=== PATIENT | female | born 1940 | race African-American/Black ===

== ENCOUNTER 2018-03-22 15:00 | Observation (INO) | payer MEDICARE, OTHER ==
[2018-03-22] MEDS ORDERED: ASPIRIN 81 MG TABLET, CHEWABLE PO ONE (15:11)
--- NOTE | 2018-03-22 15:25 | ER Document Report ---
ED Cardiac - General Chief Complaint: Chest Pain > 30 Stated Complaint: CHEST PAIN Time Seen by Provider: 03/22/18 15:12 Notes: The patient is a 78-year-old female, past medical history CABG a few years ago at [place], presents with 2 hours of substernal chest pain described as a pressure. She took 325 mg aspirin prior to arrival. Her arabic professor is Dr. Vignesh Mendez, who is on vacation at this time. Patient says this feels different than her indigestion or reflux. She is also having a dry cough. Denies fevers, hemoptysis, leg swelling, back pain, numbness, tingling, rash or headache. TRAVEL OUTSIDE OF THE [place] IN LAST 30 DAYS: No - Related Data Allergies/Adverse Reactions: lisinopril [Lisinopril] Allergy (Verified 06/24/15 13:27) Penicillins Allergy (Verified 06/24/15 13:27) Past Medical History - General Information source: Patient - Social History Smoking Status: Unknown if Ever Smoked Family History: Reviewed & Not Pertinent - Past Medical History Cardiac Medical History: Reports: Hx Coronary Artery Disease, Hx Hypercholesterolemia, Hx Hypertension Endocrine Medical History: Reports: Hx Diabetes Mellitus Type 1, Hx Diabetes Mellitus Type 2 Past Surgical History: Reports: Hx Cardiac Surgery, Hx Hysterectomy, Hx Orthopedic Surgery - left hip replacement - Immunizations Hx Diphtheria, Pertussis, Tetanus Vaccination: Yes Review of Systems - Review of Systems Notes: REVIEW OF SYSTEMS: CONSTITUTIONAL: -fevers, -chills EENT: -eye pain, -difficulty swallowing, -nasal congestion CARDIOVASCULAR: +chest pain, -syncope. RESPIRATORY: -cough, -SOB GASTROINTESTINAL: -abdominal pain, -nausea, -vomiting, -diarrhea GENITOURINARY: -dysuria, -hematuria MUSCULOSKELETAL: -back pain, -neck pain SKIN: -rash or skin lesions. HEMATOLOGIC: -easy bruising or bleeding. LYMPHATIC: -swollen, enlarged glands. NEUROLOGICAL: -altered mental status or loss of consciousness, -headache, - neurologic symptoms PSYCHIATRIC: -anxiety, -depression. ALL OTHER SYSTEMS REVIEWED AND NEGATIVE. Physical Exam - Vital signs Vitals: Pulse Ox 98 03/22/18 15:12 - Notes Notes: PHYSICAL EXAMINATION: GENERAL: Well-appearing, well-nourished and in no acute distress. HEAD: Atraumatic, normocephalic. EYES: Pupils equal round and reactive to light, extraocular movements intact, sclera anicteric, conjunctiva are normal. ENT: nares patent, oropharynx clear without exudates. Moist mucous membranes. NECK: Normal range of motion, supple without lymphadenopathy LUNGS: Breath sounds clear to auscultation bilaterally and equal. No wheezes rales or rhonchi. HEART: Regular rate and rhythm with murmur ABDOMEN: Soft, nontender, normoactive bowel sounds. No guarding, no rebound. No masses appreciated. EXTREMITIES: Normal range of motion, no pitting or edema. No cyanosis. NEUROLOGICAL: Cranial nerves grossly intact. Normal speech, normal gait. Normal sensory and motor exams. PSYCH: Normal mood, normal affect. SKIN: Warm, Dry, normal turgor, no rashes or lesions noted. Course - Re-evaluation Re-evalutation: Patient arrives with 2 hours of substernal chest pain that is described as a pressure. Pt refused nitro because her chest pain had resolved. EKG has a new LBBB compared to her EKG in 2014, but no modified Scarbossa criteria at this time, and the patient thinks that she has had left bundle branch block in the past. Her HEART score is 6. She requires admission for further evaluation and treatment of her chest pain. 03/22/18 17:[address] Blackmon and he will admit patient to Tele Obs for further evaluation and treatment. - Vital Signs Vital signs: Temp Pulse Resp BP Pulse Ox 98 03/22/18 15:12 - Laboratory Result Diagrams: 03/22/18 15:18 03/22/18 15:18 Laboratory results interpreted by me: 03/22/18 03/22/18 15:18 15:18 Hgb 10.7 L Hct 32.5 L RDW 15.9 H Sodium 145.9 H Chloride 112 H BUN 28 H Est GFR (Non-Af Amer) 55 L - Diagnostic Test Radiology reviewed: Image reviewed, Reports reviewed Radiology results interpreted by me: CXR: NAD - EKG Interpretation by Me EKG shows normal: Sinus rhythm, Stout, ST-T Waves Rate: Bradycardia Stout/QRS: LBBB When compared to previous EKG there are: Changes noted Additional EKG results interpreted by me: New LBBB since 04/07/2015. No Scarbossa criteria. Discharge - Discharge Clinical Impression: Chest pain Qualifiers: Chest pain type: unspecified Qualified Code(s): R07.9 - Chest pain, unspecified Condition: Stable Disposition: ADMITTED OBSERVATION Admitting Provider: Hospitalist - Dut Unit Admitted: Telemetry Referrals: ESTELLE HARDING MD [NO LOCAL MD] - Follow up as needed
[2018-03-22 15:37] LABS: ABSOLUTE EOSINOPHILS # (AUTO) 0.1 10^3/uL (0.0-0.6); ABSOLUTE LYMPHOCYTES (AUTO) 1.5 10^3/uL (0.5-4.7); ABSOLUTE MONOCYTES (AUTO) 0.5 10^3/uL (0.1-1.4); ABSOLUTE NEUT (AUTO) 4.1 10^3/uL (1.7-8.2); BASOPHILS % (AUTO) 0.6 % (0-2); EOSINOPHILS % (AUTO) 2.2 % (0-6); HEMATOCRIT 32.5 % (36.0-47.0); HEMOGLOBIN 10.7 g/dL (12.0-15.5); LYMPHOCYTES % (AUTO) 24.1 % (13-45); MEAN CORPUSCULAR HEMOGLOBIN 27.8 pg (27.0-33.4); MEAN CORPUSCULAR VOLUME 84 fl (80-97); MONOCYTES % (AUTO) 8.1 % (3-13); PLATELET COUNT 187 10^3/uL (150-450); RED BLOOD COUNT 3.86 10^6/uL (3.72-5.28); RED CELL DISTRIBUTION WIDTH 15.9 % (11.5-14.0); TOTAL CELLS COUNTED % (AUTO) 100 %; WHITE BLOOD COUNT 6.2 10^3/uL (4.0-10.5)
--- NOTE | 2018-03-22 15:38 | RADIOLOGY REPORT (SQ) ---
EXAM DESCRIPTION: CHEST SINGLE VIEW COMPLETED DATE/TIME: 03/22/2018 3:25 pm REASON FOR STUDY: CP COMPARISON: 06/22/2015. EXAM PARAMETERS: NUMBER OF VIEWS: One view. TECHNIQUE: Single frontal radiographic view of the chest acquired. RADIATION DOSE: NA LIMITATIONS: None. FINDINGS: LUNGS AND PLEURA: No opacities, masses or pneumothorax. No pleural effusion. MEDIASTINUM AND HILAR STRUCTURES: No masses. Contour normal. HEART AND VASCULAR STRUCTURES: Heart normal in size. Normal vasculature. BONES: No acute findings. HARDWARE: Sternotomy wires. OTHER: No other significant finding. IMPRESSION: NO ACUTE RADIOGRAPHIC FINDING IN THE CHEST. TECHNICAL DOCUMENTATION: JOB ID: [id number] [employer]- All Rights Reserved Reading location - IP/workstation name: [email or web address]
[2018-03-22] MEDS ORDERED: NITROGLYCERIN 0.4 MG/TAB 25 TAB/BOTTLE SL PRN ×2 (15:41→17:44)
[2018-03-22 15:52] LABS: INTERNATIONAL RATION (INR) 0.99; PARTIAL THROMBOPLASTIN TIME 26.2 SEC (23.5-35.8); PROTHROMBIN TIME 13.6 SEC (11.4-15.4)
[2018-03-22 16:02] LABS: ALANINE AMINOTRANSFERASE 20 U/L (9-52); ALBUMIN 3.7 g/dL (3.5-5.0); ALKALINE PHOSPHATASE 85 U/L (38-126); ANION GAP 11 (5-19); ASPARTATE AMINO TRANSFERASE 19 U/L (14-36); BILIRUBIN,DIRECT 0.3 mg/dL (0.0-0.4); BILIRUBIN,TOTAL 0.5 mg/dL (0.2-1.3); BLOOD UREA NITROGEN 28 mg/dL (7-20); CALCIUM 9.1 mg/dL (8.4-10.2); CARBON DIOXIDE 23 mmol/L (22-30); CHLORIDE 112 mmol/L (98-107); CREATINE KINASE 133 U/L (30-135); GLUCOSE 110 mg/dL (75-110); SODIUM 145.9 mmol/L (137-145); TOTAL PROTEIN 7.8 g/dL (6.3-8.2)
[2018-03-22 16:14] LABS: CREATINE KINASE MB 1.55 ng/mL (<4.55)
[2018-03-22 16:18] LABS: TROPONIN I < 0.012 ng/mL
[2018-03-22] MEDS ORDERED: DEXTROSE 40% GEL 15 GM TUBE PO PRN ×2 (18:14)
[2018-03-22] MEDS ORDERED: INSULIN LISPRO 100 UNIT/ML 3 ML VIAL SUBCUT PRN (18:14)
[2018-03-22] MEDS ORDERED: GLUCAGON,HUMAN RECOMB 1 MG INJ IM PRN (18:14)
[2018-03-22] MEDS ORDERED: DEXTROSE 50%-WATER 25 GM/50 ML DISP.SYRIN IV PRN ×2 (18:14)
--- NOTE | 2018-03-22 18:23 | PDOC H&P ---
History of Present Illness Admission Date/PCP: 03/22/18 17:42 Patient complains of: chest pain History of Present Illness: TRUPTI GARRISON is a 78 year old female with past medical history of hypertension , hyperlipidemia, and coronary artery bypass graft x4, who presented to the ED complaining of chest pain this morning. Patient states that this morning she was doing a lot of work around the house when she developed chest pain. Patient states that she was walking around when she felt a little chest pain in the center of her chest. States that the pain lasted about a minute or so and it resolved. She states she continued to do work around the house and developed the chest pain again. At that time she sat down and her pain dissipated. States after that she went to the mall and the bank and walked around and did not have any pain. Later in the afternoon she started to have the pain again and hence she came to the ED for evaluation. Patient states the pain is non radiating, sharp in nature and describes it more of a discomfort in the chest pain. States that at rest her pain gets better but with exertion it is worse. She also had associated shortness of breath when she had chest pain. Patient does state that she had a history of coronary artery bypass X4 about 5 years ago. She denies any left arm pain, jaw pain or abdominal pain. Past Medical History Cardiac Medical History: Reports: Coronary Artery Disease, Hyperlipidema, Hypertension Endocrine Medical History: Reports: Diabetes Mellitus Type 1, Diabetes Mellitus Type 2 Past Surgical History Past Surgical History: Reports: Hysterectomy, Orthopedic Surgery - left hip replacement Social History Smoking Status: Unknown if Ever Smoked Family History Family History: Reviewed & Not Pertinent Parental Family History Reviewed: Yes Children Family History Reviewed: Yes Sibling(s) Family History Reviewed.: Yes Medication/Allergy Home Medications: Oxycodone HCl/Acetaminophen [Percocet 5-325 mg Tablet] 1 - 2 tab PO Q4H PRN #20 tablet 06/22/15 Besifloxacin HCl [Besivance Drops] 1 drop OS BID #1 bottle 06/24/15 Erythromycin Base [Erythromycin Oph 1 gm Oint Ud] 1 applic OS QHS #0 tube Allergies/Adverse Reactions: lisinopril [Lisinopril] Allergy (Verified 06/24/15 13:27) Penicillins Allergy (Verified 06/24/15 13:27) Physical Exam Vital Signs: Temp Pulse Resp BP Pulse Ox 98 03/22/18 15:12 General appearance: PRESENT: no acute distress, obese, well-developed, well- nourished Head exam: PRESENT: atraumatic, normocephalic Eye exam: PRESENT: EOMI. ABSENT: conjunctival injection, scleral icterus Mouth exam: PRESENT: moist Neck exam: ABSENT: JVD, tracheal deviation Respiratory exam: PRESENT: clear to auscultation preeti, symmetrical. ABSENT: chest wall tenderness Cardiovascular exam: PRESENT: RRR, +S1, +S2, systolic murmur Pulses: PRESENT: +2 pedal pulses bilateral GI/Abdominal exam: PRESENT: normal bowel sounds, soft. ABSENT: tenderness Extremities exam: PRESENT: full ROM. ABSENT: calf tenderness, joint swelling, tenderness Neurological exam: PRESENT: alert, awake, CN II-XII grossly intact Psychiatric exam: PRESENT: normal mood Skin exam: PRESENT: dry, warm Results Laboratory Results: Laboratory 03/22/18 03/22/18 03/22/18 15:18 15:18 15:18 WBC 6.2 RBC 3.86 Hgb 10.7 L Hct 32.5 L MCV 84 MCH 27.8 MCHC 33.0 RDW 15.9 H Plt Count 187 Seg Neutrophils % 65.0 Lymphocytes % 24.1 Monocytes % 8.1 Eosinophils % 2.2 Basophils % 0.6 Absolute Neutrophils 4.1 Absolute Lymphocytes 1.5 Absolute Monocytes 0.5 Absolute Eosinophils 0.1 Absolute Basophils 0.0 PT INR APTT Sodium 145.9 H Potassium 4.0 Chloride 112 H Carbon Dioxide 23 Anion Gap 11 BUN 28 H Creatinine 0.99 Est GFR ( Amer) > 60 Est GFR (Non-Af Amer) 55 L Glucose 110 Calcium 9.1 Total Bilirubin 0.5 Direct Bilirubin 0.3 Neonat Total Bilirubin Not Reportable Neonat Direct Bilirubin Not Reportable Neonat Indirect Bili Not Reportable AST 19 ALT 20 Alkaline Phosphatase 85 Creatine Kinase 133 CK-MB (CK-2) 1.55 Troponin I < 0.012 Total Protein 7.8 Albumin 3.7 03/22/18 15:18 WBC RBC Hgb Hct MCV MCH MCHC RDW Plt Count Seg Neutrophils % Lymphocytes % Monocytes % Eosinophils % Basophils % Absolute Neutrophils Absolute Lymphocytes Absolute Monocytes Absolute Eosinophils Absolute Basophils PT 13.6 INR 0.99 APTT 26.2 Sodium Potassium Chloride Carbon Dioxide Anion Gap BUN Creatinine Est GFR ( Amer) Est GFR (Non-Af Amer) Glucose Calcium Total Bilirubin Direct Bilirubin Neonat Total Bilirubin Neonat Direct Bilirubin Neonat Indirect Bili AST ALT Alkaline Phosphatase Creatine Kinase CK-MB (CK-2) Troponin I Total Protein Albumin EKG Comments: reviewed Impressions: Chest X-Ray 03/22/18 15:12 IMPRESSION: NO ACUTE RADIOGRAPHIC FINDING IN THE CHEST. Status: Image reviewed by me Assessment & Plan - Diagnosis (1) Chest pain Qualifiers: Chest pain type: chest pain on breathing Qualified Code(s): R07.1 - Chest pain on breathing; R07.81 - Pleurodynia Is this a current diagnosis for this admission?: Yes Plan: R/O ACS- likely anginal in nature- will get serial troponins- Trop x1 is neg, Nitro PRN. O2 PRN. Given her symptoms- I think she will benefit from a Stress test- spoke with snagger and will get one tomorrow. (2) CAD (coronary artery disease) of artery bypass graft Qualifiers: [place] vs. transplanted heart: [place] heart Associated angina: with stable angina Qualified Code(s): I25.708 - Atherosclerosis of coronary artery bypass graft(s), unspecified, with other forms of angina pectoris Is this a current diagnosis for this admission?: Yes Plan: history of CABG X4. see plan above. C/w her home meds of beta tatiana (3) Hyperlipidemia Qualifiers: Hyperlipidemia type: unspecified Qualified Code(s): E78.5 - Hyperlipidemia , unspecified Is this a current diagnosis for this admission?: Yes Plan: stable c/w her statin (4) Obesity (BMI 30-39.9) Is this a current diagnosis for this admission?: Yes Plan: counseled on weight loss and dietary/lifestyle modifications (5) Diabetes mellitus type 2 in obese Is this a current diagnosis for this admission?: Yes Plan: will c/w with her Lantus but cut in half due to NPO over night and start with SSI
[2018-03-23 04:49] LABS: ABSOLUTE BASOPHILS # (AUTO) 0.1 10^3/uL (0.0-0.2); ABSOLUTE EOSINOPHILS # (AUTO) 0.1 10^3/uL (0.0-0.6); ABSOLUTE LYMPHOCYTES (AUTO) 1.7 10^3/uL (0.5-4.7); ABSOLUTE MONOCYTES (AUTO) 0.6 10^3/uL (0.1-1.4); ABSOLUTE NEUT (AUTO) 3.7 10^3/uL (1.7-8.2); BASOPHILS % (AUTO) 0.9 % (0-2); EOSINOPHILS % (AUTO) 2.1 % (0-6); HEMATOCRIT 31.3 % (36.0-47.0); HEMOGLOBIN 10.4 g/dL (12.0-15.5); LYMPHOCYTES % (AUTO) 27.2 % (13-45); MEAN CORPUSCULAR HEMOGLOBIN 27.7 pg (27.0-33.4); MEAN CORPUSCULAR HGB CONC 33.3 g/dL (32.0-36.0); MEAN CORPUSCULAR VOLUME 83 fl (80-97); MONOCYTES % (AUTO) 9.9 % (3-13); PLATELET COUNT 160 10^3/uL (150-450); RED BLOOD COUNT 3.75 10^6/uL (3.72-5.28); RED CELL DISTRIBUTION WIDTH 15.5 % (11.5-14.0); SEGMENTED NEUTROPHILS % (AUTO) 59.9 % (42-78); TOTAL CELLS COUNTED % (AUTO) 100 %; WHITE BLOOD COUNT 6.2 10^3/uL (4.0-10.5)
[2018-03-23 04:55] LABS: INTERNATIONAL RATION (INR) 1.02; PROTHROMBIN TIME 13.9 SEC (11.4-15.4)
[2018-03-23 05:12] LABS: ANION GAP 9 (5-19); BLOOD UREA NITROGEN 25 mg/dL (7-20); CALCIUM 9.1 mg/dL (8.4-10.2); CARBON DIOXIDE 26 mmol/L (22-30); CHLORIDE 109 mmol/L (98-107); CHOLESTEROL 204.87 mg/dL (0-200); GLUCOSE 112 mg/dL (75-110); POTASSIUM 4.1 mmol/L (3.6-5.0); TRIGLYCERIDES 62 mg/dL (<150)
[2018-03-23 05:23] LABS: DIRECT LDL 122 mg/dL (<100)
[2018-03-23] MEDS ORDERED: MORPHINE SULFATE 10 MG/ML INJ IV PRN (08:45)
[2018-03-23] MEDS ORDERED: METOPROLOL SUCCINATE 25 MG TAB.SR.24H PO SCH (10:00)
--- NOTE | 2018-03-23 10:06 | EKG REPORT ---
SEVERITY:- ABNORMAL ECG - SINUS RHYTHM LEFT ATRIAL ABNORMALITY LEFT BUNDLE BRANCH BLOCK : Confirmed by: Fabian Peralta 23-Mar-2018 10:05:55
--- NOTE | 2018-03-23 10:07 | EKG REPORT ---
SEVERITY:- ABNORMAL ECG - SINUS RHYTHM PROBABLE LEFT ATRIAL ABNORMALITY LEFT BUNDLE BRANCH BLOCK : Confirmed by: Fabian Peralta 23-Mar-2018 10:06:06
--- NOTE | 2018-03-23 11:58 | DRAGON STRESS TEST REPORT ---
Intravenous Lexiscan Cardiolite stress test using single photon emmision computerized tomography. Date of procedure: 03/23/2018. Ordering Provider: Dr. Becka Blackmon. Patient's status: In Patient. Indication: Chest pain. Patient has history of coronary artery disease and history of coronary artery bypass graft surgery. Coronary risk factors: Age, hypertension, diabetes mellitus, and dyslipidemia. Resting EKG: Sinus Rhythm. Left bundle branch block pattern [LBBB] Stress EKG:[ Nondiagnostic of ischemia, due to the patient's left bundle branch block pattern. The patient no chest pain or discomfort, and there were no arrhythmias seen. Reason for termination: Protocol. Conclusions: Normal EKG and hemodynamic response to IV Lexiscan. Nuclear data: At rest the patient was given 13.97 millicuries of technetium 99m sestamibi injected intravenously. As per protocol rest non gated SPECT images were obtained. Subsequently the patient was given intravenous Lexiscan at a dose of 0.4 mg in 5 mL intravenously, followed by flush with normal saline. Subsequently the stress dose of 40.8 millicuries of technetium 99m sestamibi was injected intravenously. As per protocol stress gated images were obtained. Nuclear interpretation: Review of images showed that all segments of the myocardium had normal perfusion at rest, and normal perfusion post stress with IV Lexiscan. All segments of the myocardium had normal motion, contraction, and thickening by gated study. T. I D. ratio was normal at 1.15. Computer read rest, and stress left ventricular ejection fraction were 63 %, and 55 %, respectively. Visually both the stress and rest ejection fractions were normal, and greater than 60 %. Conclusion: 1. There is no scintigraphic evidence of Lexiscan induced myocardial ischemia. 2. There is no scintigraphic evidence of myocardial infarction/scar. Recommendations: Aggressive risk factor modification, and treating the underlying co- morbidities. MTDD
[2018-03-23] MEDS ORDERED: REGADENOSON INJ 0.4 MG/5 ML DISP.SYRIN IV ONE (12:04)
[2018-03-23] MEDS ORDERED: DOCUSATE SODIUM 100 MG CAPSULE PO PRN (13:43)
[2018-03-23 13:53] VITALS: BP 158/73
[2018-03-23] MEDS ORDERED: HEPARIN SOD (PORCINE) 5,000 UNIT/ML 1 ML SYRINGE SUBCUT SCH (14:00)
--- NOTE | 2018-03-23 14:39 | PDOC DISCHARGE SUMMARY ---
General - Admit/Disc Date/PCP Admission Date/Primary Care Provider: 03/22/18 17:42 Discharge Date: 03/23/18 - Discharge Diagnosis (1) Chest pain Is this a current diagnosis for this admission?: Yes (2) CAD (coronary artery disease) of artery bypass graft Is this a current diagnosis for this admission?: Yes (3) Hyperlipidemia Is this a current diagnosis for this admission?: Yes (4) Obesity (BMI 30-39.9) Is this a current diagnosis for this admission?: Yes (5) Diabetes mellitus type 2 in obese Is this a current diagnosis for this admission?: Yes - Additional Information Discharge Diet: Cardiac Discharge Activity: Activity As Tolerated Home Medications: Ascorbic Acid [Vitamin C 500 mg Tablet] 500 mg PO DAILY 03/23/18 Aspirin [Ecotrin 81 mg EC Tablet] 81 mg PO DAILY 03/23/18 Atorvastatin Calcium [Lipitor 80 mg Tablet] 80 mg PO QHS 03/23/18 Docusate Sodium [Colace 100 mg Capsule] 100 mg PO DAILYP PRN 03/23/18 Insulin Glargine,Hum.rec.anlog [Lantus] 20 units SQ QHS 03/23/18 Metoprolol Succinate [Toprol Xl 25 mg Tab.sr] 25 mg PO DAILY 03/23/18 Micardis Hct 80-12.5mg 1 tab PO DAILY 03/23/18 Nisoldipine [Sular] 17 mg PO QHS 03/23/18 History of Present Illness Patient complains of: chest pain History of Present Illness: please see HPI Hospital Course Hospital Course: After admission to the hospital she remained chest pain-free. Patient had no other symptoms. Patient underwent Lexiscan stress test the next morning and was negative. She was discharged home to the care of her PCP and told to follow -up with her outside deliverer. Patient was told that if he has any has chest pain that she should call 911. Otherwise she should follow with her PCP in 1 week and her outside deliverer within 1-2 weeks. Physical Exam Vital Signs: Temp Pulse Resp BP Pulse Ox 97.4 F 69 16 170/58 H 100 03/23/18 11:37 03/23/18 11:37 03/23/18 11:37 03/23/18 11:37 03/23/18 11:37 Intake & Output 03/22/18 03/23/1818 06:59 06:59 06:59 Weight 193 lb 9.054 oz General appearance: PRESENT: no acute distress, obese Head exam: PRESENT: atraumatic, normocephalic Eye exam: PRESENT: EOMI. ABSENT: scleral icterus Mouth exam: PRESENT: moist Neck exam: ABSENT: tracheal deviation Respiratory exam: PRESENT: clear to auscultation preeti, symmetrical Cardiovascular exam: PRESENT: RRR, +S1, +S2 Pulses: PRESENT: +2 pedal pulses bilateral GI/Abdominal exam: PRESENT: normal bowel sounds, soft. ABSENT: tenderness Extremities exam: ABSENT: joint swelling, tenderness, +2 edema Musculoskeletal exam: PRESENT: full ROM Neurological exam: PRESENT: alert, awake, CN II-XII grossly intact Skin exam: PRESENT: dry, warm Results Laboratory Results: 03/23/18 04:06 03/23/18 04:06 03/23/18 03/23/18 04:06 04:06 WBC 6.2 RBC 3.75 Hgb 10.4 L Hct 31.3 L MCV 83 MCH 27.7 MCHC 33.3 RDW 15.5 H Plt Count 160 Seg Neutrophils % 59.9 Lymphocytes % 27.2 Monocytes % 9.9 Eosinophils % 2.1 Basophils % 0.9 Absolute Neutrophils 3.7 Absolute Lymphocytes 1.7 Absolute Monocytes 0.6 Absolute Eosinophils 0.1 Absolute Basophils 0.1 Sodium 144.0 Potassium 4.1 Chloride 109 H Carbon Dioxide 26 Anion Gap 9 BUN 25 H Creatinine 1.00 Est GFR ( Amer) > 60 Est GFR (Non-Af Amer) 54 L Glucose 112 H Calcium 9.1 Triglycerides 62 Cholesterol 204.87 H LDL Cholesterol Direct 122 H VLDL Cholesterol 12.0 HDL Cholesterol 51 03/22/18 03/23/18 19:25 01:31 Troponin I < 0.012 < 0.012 Impressions: Chest X-Ray 03/22/18 15:12 IMPRESSION: NO ACUTE RADIOGRAPHIC FINDING IN THE CHEST. Qualifiers - * PATIENT BEING DISCHARGED WITH ANY OF THE FOLLOWING DIAGNOSIS: No VTE patient discharged on overlapping Therapy?: No Reason(s) for not prescribing Overlap Therapy:: Procedure Contraindicated Plan Discharge Plan: Stress test normal. Follow up with PCP within 1 week. Follow up with [employer] Remote Sensing Scientist within 1-2 weeks. Time Spent: Less than 30 Minutes
[2018-03-23] MEDS ORDERED: INSULIN GLARGINE,HUM.REC.ANLOG 1,000 UNIT/10 ML UNIT SUBCUT SCH (22:00)
[2018-03-23] MEDS ORDERED: INSULIN GLARGINE,HUM.REC.ANLOG 300 UNIT/3 ML INSULN.PEN SUBCUT SCH (22:00)
[2018-03-23] MEDS ORDERED: ATORVASTATIN CALCIUM 80 MG TABLET PO SCH (22:00)
[2018-03-24] MEDS ORDERED: ASPIRIN 81 MG TABLET, ENT COATED PO SCH (10:00)
== END 2018-03-23 14:41 | disposition home or self-care (01) ==
LOC: ER 15:00 → EH 17:42 → 5 20:20
PROVIDERS: ADMIT Internal Medicine; ATTEND Internal Medicine
DX: R07.1 Chest pain on breathing (principal); R07.81 Pleurodynia; I25.708 Atherosclerosis of coronary artery bypass graft(s), unspecified, with other forms of angina pectoris; E78.5 Hyperlipidemia, unspecified; E66.9 Obesity, unspecified; E11.9 Type 2 diabetes mellitus without complications; R06.02 Shortness of breath; R05 Cough; I44.7 Left bundle-branch block, unspecified; R00.1 Bradycardia, unspecified; I10 Essential (primary) hypertension; Z68.33 Body mass index [BMI] 33.0-33.9, adult; Z79.82 Long term (current) use of aspirin; Z79.899 Other long term (current) drug therapy; Z95.1 Presence of aortocoronary bypass graft
CPT/HCPCS: 93005 ×2; 99285; 36415 ×2; 82553; 82962 ×2; 82550; 85025 ×2; 85610 ×2; 85730; 80048; 80053; 84484 ×2; 80061; 93017; 71045; 78452; 93010 ×2; G0378 ×3; A9500; J2785; J3490 ×2; A9270; Q9969; J1815

== ENCOUNTER 2018-06-09 13:44 | Inpatient (IN) | payer MEDICARE, OTHER ==
--- NOTE | 2018-06-09 14:33 | ER Document Report ---
ED NIH Stroke Scale - NIH Stroke Scale *: 1. NIH scale should be completed with appropriate accompanying assessment tools. *: 2. The NIH should reflect what the patient is capable of doing and should not be coached by the clinician. 1a. Level of Consciousness: 0=Alert;keenly responsive -: 1=Drowsy -: 2=Obtunded -: 3=Coma/unresponsive or reflex to noxious stimuli. 1a. Responses: 1 1b. Orientation Questions: a. What month is it? -: b. How old are you? -: 0=Answers both questions correctly. -: 1=Answers one question correctly or patient is intubated or has orotracheal trauma. -: 2=Answers neither question correctly. 1b. Responses: 0 1c. Response to commands: a. Open and close eyes? -: b. Hanger and release hand? -: Credit is given despite weakness. Demonstration of task is permitted. Substitute command if hands cannot be used. -: 0=Performs both tasks correctly -: 1=Performs one task correctly -: 2=Performs neither task correctly 1c. Responses: 0 2. Gaze: Establish eye contact and instruct patient to "Follow my finger" -: 0=Normal -: 1=Partial gaze palsy. Gaze is abnormal in one or both eyes, but where forced deviation or total gaze paresis is not present. -: 2=Forced deviation or total gaze paresis. 2. Responses: 0 3. Visual Diaz: Sees fingers in all four quadrants. -: 0=No visual loss. -: 1=Partial hemianopsia. -: 2=Complete hemianopsia. -: 3=Bilateral hemianopsia (including Cortical blindness) 3. Responses: 0 4. Facial Movement: Instruct patient to: -: a. Show me your teeth -: b. Raise your eyebrows -: c. Close your eyes -: d. Smile -: 0=Normal symmetrical movement -: 1=Minor paralysis (flattened nasolabial fold, asymmetry on smiling). -: 2=Partial paralysis (total or near total paralysis of lower face). -: 3=Complete paralysis of upper and lower face 4. Responses: 1 5. Motor functions (left arm): Alternate sides and extend each arm with palms down (90 degrees if sitting or 45 degrees for supine). -: 0=No drift;limb holds for full 10 seconds. -: 1=Drift; limb holds but drifts down before full 10 seconds, but does not hit bed. -: 2=Some effort against gravity; limb cannot get to or maintain position. -: 3=No effort against gravity; limb falls. -: 4=No movement. -: UN=Amputation, joint fusion, explain in comments. 5. Responses (left arm): 0 5. Motor Functions (right arm): Alternate sides and extend each arm with palms down (90 degrees if sitting or 45 degrees for supine). -: 0=No drift;limb holds for full 10 seconds. -: 1=Drift; limb holds but drifts down before full 10 seconds, but does not hit bed. -: 2=Some effort against gravity; limb cannot get to or maintain position. -: 3=No effort against gravity; limb falls. -: 4=No movement. -: UN=Amputation, joint fusion, explain in comments. 5. Responses (right arm): 2 6. Motor Functions (left leg): With patient lying supine, alternate sides and extend each leg (30 degrees always while supine). -: 0=No drift, leg holds position for full 5 seconds -: 1=Drift; leg falls before full 5 seconds but does not hit bed. -: 2=Some effort against gravity, leg falls to bed but some effort against gravity. -: 3=No effort against gravity, leg falls to bed immediately. -: 4=No movement. -: UN=Amputation, joint fusion; explain in comments. 6. Responses (left leg): 0 6. Motor Functions (right leg): With patient lying supine, alternate sides and extend each leg (30 degrees always while supine). -: 0=No drift, leg holds position for full 5 seconds -: 1=Drift; leg falls before full 5 seconds but does not hit bed. -: 2=Some effort against gravity, leg falls to bed but some effort against gravity. -: 3=No effort against gravity, leg falls to bed immediately. -: 4=No movement. -: UN=Amputation, joint fusion; explain in comments. 6. Responses (right leg): 1 7. Limb Ataxia: With eyes open instruct patient to: -: a. "Touch your finger to your nose". -: b. "Touch your heel to your billy" -: 0=Absent -: 1=Present in one limb. -: 2=Present in two limbs. -: UN=Amputation or joint fusion; explain in comments. 7. Responses: 1 7. If ataxia present choose as appropriate: Right arm 8. Sensory: Test sensation using pinprick or noxious stimuli. Test as many body parts as possible. -: 0=Normal;no sensory loss -: 1=Mile to moderate sensory loss (patient feels pin prick but is less sharp on affected side). -: 2=Severe or total sensory loss. 8. Responses: 0 9. Best Language: Instruct patient to: -: a. "Describe what you see in this picture." -: b. "Name the items in this picture." -: c. "Read these sentences." -: 0=No aphasia, normal -: 1=Mild to moderate aphasia. -: 2=Severe aphasia -: 3=Mute, global aphasia, no usable speech or auditory comprehension. 9. Responses: 1 10. Articulation, Dysarthia: Instruct patient to: -: "Read these words" or "Repeat these words" -: 0=Normal -: 1=Mild to moderate; patient may slur some words but can be understood without difficulty. -: 2=Severe; patients speech so slurred as to be unintelligible in the absence of dysphasia. -: UN=Intubated or other physical barrier, explain in comments. 10. Responses: 1 11. Extinction or inattention: 0=No abnormality -: 1= Visual, tactile, auditory, spatial, or personal inattention or extinction to bilateral simulation in one or the sensory modalities. -: 2=Profound yamilex-inattention or yamilex-inattention to more than one modality; does not recognize own hand. 11. Responses: 0 Total Score: 8
--- NOTE | 2018-06-09 14:36 | ER Document Report ---
ED Medical Screen (RME) - General Chief Complaint: S/S of Possible Stroke Stated Complaint: SLURRED SPEECH Time Seen by Provider: 06/09/18 14:17 Mode of Arrival: Ambulatory Information source: Patient, Relative TRAVEL OUTSIDE OF THE [place] IN LAST 30 DAYS: No - HPI Notes: 06/09/18 14:33 Patient is a 78-year-old black female history of insulin-dependent diabetes and previous coronary bypass graft presents to the emergency department with report of abrupt onset at 2300 last night of aphasia and right-sided weakness. The patient has had difficulty ambulating. She denies any headache or chest pain. There has been no nausea or vomiting. No medication changes. She currently is taking aspirin and insulin but is not on any other anticoagulants. No previous stroke history. On exam she has aphasia and NIH stroke scale of 8 with right- sided weakness. No sensory deficit. The patient is alert and oriented. Plan for CT stroke protocol and CTA if indicated given that the patient is within a 24 hour window to search for large vessel occlusive disease. Lab work chest x- ray EKG other studies were ordered on the patient. Please see partner note for further evaluation. - Related Data Allergies/Adverse Reactions: lisinopril [Lisinopril] Allergy (Verified 06/09/18 13:45) Penicillins Allergy (Verified 06/09/18 13:45) Past Medical History - Past Medical History Cardiac Medical History: Reports: Hx Coronary Artery Disease, Hx Hypercholesterolemia, Hx Hypertension Endocrine Medical History: Reports: Hx Diabetes Mellitus Type 1, Hx Diabetes Mellitus Type 2 Renal/ Medical History: Denies: Hx Peritoneal Dialysis Past Surgical History: Reports: Hx Cardiac Surgery, Hx Hysterectomy, Hx Orthopedic Surgery - left hip replacement - Immunizations Hx Diphtheria, Pertussis, Tetanus Vaccination: Yes History of Influenza Vaccine for 06/2017 - 11/2017 Season: Unknown Physical Exam - Vital signs Vitals: Temp Pulse Resp BP Pulse Ox 98.1 F 67 16 131/46 H 98 06/09/18 14:04 06/09/18 14:04 06/09/18 14:04 06/09/18 14:04 06/09/18 14:04 Course - Vital Signs Vital signs: Temp Pulse Resp BP Pulse Ox 98.1 F 67 16 131/46 H 98 06/09/18 14:04 06/09/18 14:04 06/09/18 14:04 06/09/18 14:04 06/09/18 14:04
--- NOTE | 2018-06-09 14:52 | RADIOLOGY REPORT (SQ) ---
EXAM DESCRIPTION: CHEST SINGLE VIEW COMPLETED DATE/TIME: 06/09/2018 2:38 pm REASON FOR STUDY: CVA COMPARISON: 03/22/2018 EXAM PARAMETERS: NUMBER OF VIEWS: One view. TECHNIQUE: Single frontal radiographic view of the chest acquired. RADIATION DOSE: NA LIMITATIONS: None. FINDINGS: LUNGS AND PLEURA: No opacities, masses or pneumothorax. No pleural effusion. MEDIASTINUM AND HILAR STRUCTURES: No masses. Contour normal. HEART AND VASCULAR STRUCTURES: Heart normal in size. Normal vasculature. BONES: No acute findings. HARDWARE: Sternotomy wires. OTHER: No other significant finding. IMPRESSION: NO ACUTE RADIOGRAPHIC FINDING IN THE CHEST. TECHNICAL DOCUMENTATION: JOB ID: [id number] [email or web address]- All Rights Reserved Reading location - IP/workstation name: [email or web address]
--- NOTE | 2018-06-09 14:56 | RADIOLOGY REPORT (SQ) ---
EXAM DESCRIPTION: CT HEAD WITHOUT COMPLETED DATE/TIME: 06/09/2018 2:34 pm REASON FOR STUDY: CVA R sided weakness, aphasia onset 2300 last nigh COMPARISON: 06/22/2015 TECHNIQUE: Axial images acquired through the brain without intravenous contrast. Images reviewed wi th bone, brain and subdural windows. Additional sagittal and coronal reconstructions were generated. Images stored on PACS. All CT scanners at this facility use dose modulation, iterative reconstruction, and/or weight based d osing when appropriate to reduce radiation dose to as low as reasonably achievable (ALARA). [facility]: Dose Right [facility]: CareDose [facility]: Dose Right [facility]: Teradose 4D [facility]: [employer] RADIATION DOSE: CT Rad equipment meets quality standard of care and radiation dose reduction techniq ues were employed. CTDIvol: 53.2 mGy. DLP: 964 mGy-cm. LIMITATIONS: None. FINDINGS: VENTRICLES: Normal size and contour. The cisterns are patent. CEREBRUM: A low attenuated area is suggested in the region of the left basal ganglia, since the prev ious examination dated 06/22/2015. Considerations for this finding includes infarct. No evidence of hemorrhage. No midline shift. Chronic stable small vessel ischemic changes. Old right remote lacun es. CEREBELLUM: No masses. No hemorrhage. No alteration of density. No evidence for acute infarction. EXTRAAXIAL SPACES: No fluid collections. No masses. ORBITS AND GLOBE: No intra- or extraconal masses. Normal contour of globe without masses. CALVARIUM: No fracture. PARANASAL SINUSES: Very slight mucosal thickening in the sphenoid sinus. Slight to mild deviation of the nasal septum to the left of the midline. Nasal bony spur. SOFT TISSUES: No mass or hematoma. OTHER: No other significant finding. IMPRESSION: 1. Focal low signal intensity is suggested in the region of the left basal ganglia sinc e the prior study dated 06/22/2015. Considerations for this finding includes an infarct. No evidence of hemorrhage, midline shift or mass effect. EVIDENCE OF ACUTE STROKE: YES. COMMENT: 1. The results of this examination were given to the emergency department Nurse Practition er on 06/09/2018 at 14:47 hours. Quality ID # [id number]: Final reports with documentation of one or more dose reduction techniques (e.g., Au tomated exposure control, adjustment of the mA and/or kV according to patient size, use of iterative reconstruction technique) TECHNICAL DOCUMENTATION: JOB ID: [id number] [employer]- All Rights Reserved Reading location - IP/workstation name: [email or web address]
--- NOTE | 2018-06-09 15:20 | ER Document Report ---
ED General - General Chief Complaint: S/S of Possible Stroke Stated Complaint: SLURRED SPEECH Time Seen by Provider: 06/09/18 14:17 Mode of Arrival: Ambulatory Information source: Patient TRAVEL OUTSIDE OF THE [place] IN LAST 30 DAYS: No - HPI Notes: Patient is a 78-year-old black female history of insulin-dependent diabetes and previous coronary bypass graft presents to the emergency department with report of abrupt onset at 2300 last night of aphasia and right-sided weakness. The patient has had difficulty ambulating. She denies any headache or chest pain. There has been no nausea or vomiting. No medication changes. She currently is taking aspirin and insulin but is not on any other anticoagulants. No previous stroke history. On exam she has aphasia and NIH stroke scale of 8 with right- sided weakness. No sensory deficit. The patient is alert and oriented. Plan for CT stroke protocol and CTA if indicated given that the patient is within a 24 hour window to search for large vessel occlusive disease. Lab work chest x- ray EKG other studies were ordered on the patient. Patient denies any chest pain or difficulty breathing. She reports no nausea or vomiting. Symptoms have been consistent since last evening. She has never had a previous stroke. - Related Data Allergies/Adverse Reactions: lisinopril [Lisinopril] Allergy (Verified 06/09/18 13:45) Penicillins Allergy (Verified 06/09/18 13:45) Past Medical History - General Information source: Patient, Relative - Social History Smoking Status: Unknown if Ever Smoked Frequency of alcohol use: None Drug Abuse: None Lives with: Family Family History: Reviewed & Not Pertinent Patient has suicidal ideation: No Patient has homicidal ideation: No - Past Medical History Cardiac Medical History: Reports: Hx Coronary Artery Disease, Hx Hypercholesterolemia, Hx Hypertension Endocrine Medical History: Reports: Hx Diabetes Mellitus Type 1, Hx Diabetes Mellitus Type 2 Renal/ Medical History: Denies: Hx Peritoneal Dialysis Past Surgical History: Reports: Hx Cardiac Surgery - quadruple bypass, Hx Hysterectomy, Hx Orthopedic Surgery - left hip replacement - Immunizations Hx Diphtheria, Pertussis, Tetanus Vaccination: Yes Review of Systems - Review of Systems -: Yes All other systems reviewed and negative Physical Exam - Vital signs Vitals: Temp Pulse Resp BP Pulse Ox 98.1 F 67 16 131/46 H 98 06/09/18 14:04 06/09/18 14:04 06/09/18 14:04 06/09/18 14:04 06/09/18 14:04 - Notes Notes: PHYSICAL EXAMINATION: GENERAL: Well-appearing, well-nourished and in no acute distress. HEAD: Atraumatic, normocephalic. EYES: Pupils equal round and reactive to light, extraocular movements intact, conjunctiva are normal. ENT: Nares patent, oropharynx clear without exudates. Moist mucous membranes. NECK: Normal range of motion, supple without lymphadenopathy. Questionable mild bilateral carotid bruits. LUNGS: Breath sounds clear to auscultation bilaterally and equal. No wheezes rales or rhonchi. HEART: Regular rate and rhythm with 2/6 DONIS over the apex. Median sternotomy scar which is well-healed. ABDOMEN: Soft, nontender, nondistended abdomen. No guarding, no rebound. No masses appreciated. Female : deferred Musculoskeletal: Normal range of motion, no pitting or edema. No cyanosis. NEUROLOGICAL: See separate NIH stroke scale of 8 with separate documentation. PSYCH: Normal mood, normal affect. SKIN: Warm, Dry, normal turgor, no rashes or lesions noted. Course - Re-evaluation Re-evalutation: 06/09/18 15:20 CT scan of the head shows a left basilar CVA consistent with age of symptoms. A CTA will be performed as soon as a BUN creatinine is back so we can rule out large vessel occlusive disease. 06/09/18 18:[address] Ramos, covering for the hospitalist, who would pass on information to oncoming hospitalist at shift change to arrange for admission. CTA showed no gross large vessel occlusion, but there was notable carotid artery stenosis mention, although no percentage stenosis was described. Patient does not meet the criteria or need for embolectomy to be performed. The patient has already been given aspirin. Repeat neurologic exam done at this time showed no gross evidence for acute change in NIH stroke scale was still an 8. Call will be made to the patient's daughter to inform her of the findings. Patient is agreeable to admission. 06/09/18 18:18 Discussion was undertaken with Dr. Cadet who agreed to admit the patient. 06/09/18 20:06 - Vital Signs Vital signs: Temp Pulse Resp BP Pulse Ox 98.1 F 67 16 154/63 H 100 06/09/18 14:04 06/09/18 18:34 06/09/18 18:34 06/09/18 18:34 06/09/18 18:34 - Laboratory Result Diagrams: 06/09/18 14:50 06/09/18 14:50 Laboratory results interpreted by me: 06/09/18 06/09/18 06/09/18 14:50 14:50 15:59 Hgb 11.0 L Hct 33.7 L RDW 15.2 H Monocytes % 13.9 H BUN 23 H Creatinine 1.36 H Est GFR ( Amer) 46 L Est GFR (Non-Af Amer) 38 L Urine Protein 30 H Urine Blood SMALL H Urine Urobilinogen 2.0 H Ur Leukocyte Esterase LARGE H - Diagnostic Test Radiology reviewed: Image reviewed - EKG Interpretation by Me EKG shows normal: Sinus rhythm Rate: Normal Additional EKG results interpreted by me: 06/09/18 15:20 EKG as interpreted by me showed normal sinus rhythm with mild bradycardia heart rate 57. There is a left bundle branch block. There is no gross evidence for acute CA or ischemia noted. There is no significant change from previous EKG reviewed from 03/23/18. Critical Care Note - Critical Care Note Total time excluding time spent on procedures (mins): 37 Discharge - Discharge Clinical Impression: CVA (cerebral vascular accident) Qualifiers: CVA mechanism: thrombosis Precerebral and cerebral artery: middle cerebral artery Laterality of affected vessel: left Qualified Code(s): I63.312 - Cerebral infarction due to thrombosis of left middle cerebral artery Urinary tract infection Qualifiers: Urinary tract infection type: acute cystitis Hematuria presence: without hematuria Qualified Code(s): N30.00 - Acute cystitis without hematuria Condition: Good Disposition: ADMITTED INPATIENT Admitting Provider: Hospitalist Unit Admitted: Telemetry Referrals: KIARA HARRINGTON FNP-C [Primary Care Provider] - Follow up as needed
[2018-06-09 15:21] LABS: ABSOLUTE EOSINOPHILS # (AUTO) 0.1 10^3/uL (0.0-0.6); ABSOLUTE LYMPHOCYTES (AUTO) 1.6 10^3/uL (0.5-4.7); ABSOLUTE MONOCYTES (AUTO) 0.7 10^3/uL (0.1-1.4); ABSOLUTE NEUT (AUTO) 2.8 10^3/uL (1.7-8.2); BASOPHILS % (AUTO) 0.5 % (0-2); EOSINOPHILS % (AUTO) 2.3 % (0-6); HEMATOCRIT 33.7 % (36.0-47.0); LYMPHOCYTES % (AUTO) 30.6 % (13-45); MEAN CORPUSCULAR HEMOGLOBIN 27.2 pg (27.0-33.4); MEAN CORPUSCULAR HGB CONC 32.5 g/dL (32.0-36.0); MEAN CORPUSCULAR VOLUME 84 fl (80-97); MONOCYTES % (AUTO) 13.9 % (3-13); PLATELET COUNT 196 10^3/uL (150-450); RED BLOOD COUNT 4.03 10^6/uL (3.72-5.28); RED CELL DISTRIBUTION WIDTH 15.2 % (11.5-14.0); SEGMENTED NEUTROPHILS % (AUTO) 52.7 % (42-78); TOTAL CELLS COUNTED % (AUTO) 100 %; WHITE BLOOD COUNT 5.2 10^3/uL (4.0-10.5)
[2018-06-09 15:25] LABS: PROTHROMBIN TIME 13.7 SEC (11.4-15.4)
[2018-06-09 15:34] LABS: ALANINE AMINOTRANSFERASE 18 U/L (9-52); ALBUMIN 3.6 g/dL (3.5-5.0); ALKALINE PHOSPHATASE 74 U/L (38-126); ANION GAP 8 (5-19); ASPARTATE AMINO TRANSFERASE 19 U/L (14-36); BILIRUBIN,DIRECT 0.3 mg/dL (0.0-0.4); BILIRUBIN,TOTAL 0.3 mg/dL (0.2-1.3); BLOOD UREA NITROGEN 23 mg/dL (7-20); CALCIUM 9.1 mg/dL (8.4-10.2); CARBON DIOXIDE 25 mmol/L (22-30); CHLORIDE 107 mmol/L (98-107); GLUCOSE 96 mg/dL (75-110); POTASSIUM 3.6 mmol/L (3.6-5.0); SODIUM 140.2 mmol/L (137-145); TOTAL PROTEIN 7.6 g/dL (6.3-8.2)
[2018-06-09 16:44] LABS: AMORPHOUS SEDIMENT,URINE TRACE /HPF; APPEARANCE,URINE CLOUDY; BILIRUBIN,URINE NEGATIVE (NEGATIVE); COLOR,URINE YELLOW; GLUCOSE, URINE NEGATIVE (NEGATIVE); KETONES,URINE NEGATIVE (NEGATIVE); LEUKOCYTE ESTERASE,URINE LARGE (NEGATIVE); NITRITE,URINE NEGATIVE (NEGATIVE); PROTEIN,URINE 30 mg/dL (NEGATIVE); URINE SPECIFIC GRAVITY 1.016
[2018-06-09] MEDS ORDERED: CIPROFLOXACIN HCL 500 MG TABLET PO ONE (16:56)
--- NOTE | 2018-06-09 17:28 | RADIOLOGY REPORT (SQ) ---
EXAM DESCRIPTION: CTA HEAD COMPLETED DATE/TIME: 06/09/2018 5:13 pm REASON FOR STUDY: CVA R hemiparesis COMPARISON: None. TECHNIQUE: Post IV contrast scanning, thin section axial imaging through the brain to evaluate the a rterial structures. Source and MIP images are saved and reviewed on PACS. Advanced 3D imaging as volume-rendering, MIPs, SSD performed? Yes All CT scanners at this facility use dose modulation, iterative reconstruction, and/or weight based d osing when appropriate to reduce radiation dose to as low as reasonably achievable (ALARA). [facility]: Dose Right [facility]: CareDose [facility]: Dose Right [facility]: Teradose 4D [facility]: [employer] CONTRAST TYPE AND DOSE: 70 mL Omnipaque 350 RENAL FUNCTION: Creatinine 1.36 LIMITATIONS: None. FINDINGS: [place] OF LIVE: The anterior, middle, posterior cerebral arteries are all patent. No ev idence of aneurysm or focal stenosis. POSTERIOR CIRCULATION: The distal vertebral arteries are patent as is the basilar artery. No aneurysm . BRAIN: No gross enhancing lesions as visualized. The superior cerebral hemispheres are not included in the field of view. BONES: Intact as visualized. SINUSES: No fluid or mucosal thickening. OTHER: No other significant finding. IMPRESSION: NO CTA EVIDENCE OF STENOSIS OR ANEURYSM OF THE [place] OF LIVE. TECHNICAL DOCUMENTATION: JOB ID: [id number] Quality ID # [id number]: Final reports with documentation of one or more dose reduction techniques (e.g., Au tomated exposure control, adjustment of the mA and/or kV according to patient size, use of iterative reconstruction technique) 2010 [employer]- All Rights Reserved Reading location - IP/workstation name: [email or web address]
--- NOTE | 2018-06-09 17:32 | RADIOLOGY REPORT (SQ) ---
EXAM DESCRIPTION: CTA NECK COMPLETED DATE/TIME: 06/09/2018 5:13 pm REASON FOR STUDY: CVA R hemiparesis COMPARISON: None. TECHNIQUE: Axial dynamic scanning technique with dynamic contrast enhancement through the extra-scrap preparation supervisor nial carotid and vertebral arteries. Multiplanar reconstruction. 3-D MIPS and Volume-rendered imag es acquired at the workstation and saved to PACS. Images are reviewed in soft tissue, bone, lung w indows. All CT scanners at this facility use dose modulation, iterative reconstruction, and/or weight based d osing when appropriate to reduce radiation dose to as low as reasonably achievable (ALARA). [facility]: Dose Right [facility]: CareDose [facility]: Dose Right [facility]: Teradose 4D [facility]: [employer] CONTRAST TYPE AND DOSE: contrast/concentration: Isovue 350.00 mg/ml; Total Contrast Delivered: 70.0 ml; Total Saline Delivered: 75.0 ml RENAL FUNCTION: Creatinine 1.36 LIMITATIONS: None. FINDINGS: AORTIC ARCH: Normal three-vessel origin. Bilateral subclavian arteries are patent. No d issection. RIGHT CAROTIDS: Patent common, internal and external carotid arteries. There is a short segment sten osis of the right internal carotid artery extending from its origin with associated calcific atherosc lerotic plaquing RIGHT VERTEBRAL: Patent. No dissection. LEFT CAROTIDS: Patent common, internal and external carotid arteries. There is a short segment steno sis of the left internal carotid artery extending from its origin with associated calcific atheroscle rotic plaquing. LEFT VERTEBRAL: Patent. No dissection. OTHER: No other significant finding. OTHER: 3-D reconstructions confirm findings. IMPRESSION: The there are short segment stenoses of both internal carotid artery's extending from th eir origin with associated calcific atherosclerotic plaquing. Carotid duplex study may be of value f or further evaluation to better quantitate the degree of stenosis. Other findings as noted above COMMENT: Quality ID #[id number]: Measurements of distal internal carotid diameter were used as the denomina tor for stenosis measurement. TECHNICAL DOCUMENTATION: JOB ID: [id number] Quality ID # [id number]: Final reports with documentation of one or more dose reduction techniques (e.g., Au tomated exposure control, adjustment of the mA and/or kV according to patient size, use of iterative reconstruction technique) 2010 [employer]- All Rights Reserved Reading location - IP/workstation name: [email or web address]
[2018-06-09] MEDS ORDERED: ASPIRIN 325 MG TABLET PO ONE (20:05)
[2018-06-09] MEDS ORDERED: ONDANSETRON 4 MG TAB.RAPDIS PO PRN (20:44)
[2018-06-09] MEDS ORDERED: ACETAMINOPHEN 325 MG TABLET PO PRN (20:44)
[2018-06-09] MEDS ORDERED: MAGNESIUM HYDROXIDE SUSP 30 ML UDCUP PO PRN (20:44)
[2018-06-09] MEDS ORDERED: DEXTROSE 40% GEL 15 GM TUBE PO PRN ×2 (20:53)
[2018-06-09] MEDS ORDERED: DEXTROSE 50%-WATER 25 GM/50 ML DISP.SYRIN IV PRN ×2 (20:53)
[2018-06-09] MEDS ORDERED: GLUCAGON,HUMAN RECOMB 1 MG INJ IM PRN (20:53)
[2018-06-09 21:44] LABS: INTERNATIONAL RATION (INR) 0.99; PARTIAL THROMBOPLASTIN TIME 27.5 SEC (23.5-35.8); PROTHROMBIN TIME 13.6 SEC (11.4-15.4)
--- NOTE | 2018-06-09 22:06 | PDOC H&P ---
History of Present Illness Admission Date/PCP: 06/09/2018 KIARA HARRINGTON, PODIATRY DOCTOR-C Patient complains of: weakness History of Present Illness: TRUPTI GARRISON is a 78 year old female who comes to the emergency department with weakness. Tells me that last night around 11 PM felt that it was difficult to walk, she was tumbling, felt her foot was not moving fast, she sat on the bed and fell to the side, could not move her right lower extremity. Earlier tells me that she was dropping things with the left arm 10pm (she points her L arm, not R, confused?). As for her heart medications and went to sleep, she was a little bit lightheaded. She woke up at 8 in the morning she felt okay she went back to sleep, 1230 she was feeling tired but she decided to go to the bank was unable to get off of the car as she could not move her right lower extremity. Denies having any facial droop, vision problems, paresthesias, swallowing problems. Daughter was not in the room when I went to see the patient by the ED attending told me that they noticed that she had some expressive aphasia and explored his speech. CT scan of the head shows left basilar ganglia CVA. CTA head and neck showed no gross large vessel occlusion or aneurysm. Aspirin 325 given Past Medical History Cardiac Medical History: Reports: Coronary Artery Disease - 1 bypass, Hyperlipidema, Hypertension Endocrine Medical History: Reports: Diabetes Mellitus Type 2, Hypothyroidism Past Surgical History Past Surgical History: Reports: Hysterectomy, Orthopedic Surgery - left hip replacement Social History Lives with: Family Smoking Status: Never Smoker Frequency of Alcohol Use: None Hx Recreational Drug Use: No Hx Prescription Drug Abuse: No Family History Family History: Reviewed & Not Pertinent Parental Family History Reviewed: No Children Family History Reviewed: NA Sibling(s) Family History Reviewed.: NA Medication/Allergy Home Medications: Ascorbic Acid [Vitamin C 500 mg Tablet] 500 mg PO DAILY 03/23/18 Aspirin [Ecotrin 81 mg EC Tablet] 81 mg PO DAILY 03/23/18 Atorvastatin Calcium [Lipitor 80 mg Tablet] 80 mg PO QHS 03/23/18 Docusate Sodium [Colace 100 mg Capsule] 100 mg PO DAILYP PRN 03/23/18 Insulin Glargine,Hum.rec.anlog [Lantus] 20 units SQ QHS 03/23/18 Metoprolol Succinate [Toprol Xl 25 mg Tab.sr] 25 mg PO DAILY 03/23/18 Micardis Hct 80-12.5mg 1 tab PO DAILY 03/23/18 Nisoldipine [Sular] 17 mg PO QHS 03/23/18 Allergies/Adverse Reactions: lisinopril [Lisinopril] Allergy (Verified 06/09/18 13:45) Penicillins Allergy (Verified 06/09/18 13:45) Review of Systems Review of Systems: As outlined in the HPI, all others negative Physical Exam Vital Signs: Temp Pulse Resp BP Pulse Ox 98.1 F 73 18 144/62 H 100 06/09/18 14:04 06/09/18 21:05 06/09/18 21:05 06/09/18 21:05 06/09/18 21:05 Intake & Output 06/08/18 06/09/18 06/10/18 06:59 06:59 06:59 Weight 84 kg Additional comments: General appearance: Well-developed, well-nourished, alert and cooperative, and appears to be in no acute distress Head: Normocephalic Eyes: PEERL, EOMI, vision is grossly intact. Ears: External auditory canal and tympanic membranes clear, hearing grossly intact. Nose: No nasal discharge. Throat: Oral cavity and pharynx normal. No inflammation, swelling, exudate or lesions. Neck: Neck supple, nontender without lymphadenopathy, masses or thyromegaly. Cardiac: Normal S1 and S2. No S3, S4 or murmurs. Rhythm is regular. There is no peripheral edema, cyanosis or pallor. Extremities are warm and well perfused. Capillary refill is less than 2 seconds. No carotid bruits. Lungs: Clear to auscultation and percussion without rales, rhonchi, wheezing or diminished breath sounds. Not using accessory muscles. Abdomen: Positive bowel sounds. Soft. Nondistended, nontender. No guarding or rebound. No masses. No hepatosplenomegaly Extremities: No significant deformity or joint abnormality. No edema. Peripheral pulses intact. No varicosities. Neurological: Cranial nerves II through XII grossly intact. Strength 4/5 right upper and right lower extremity, minimal drift, sensation intact throughout. Reflexes 2+ throughout. Skin: Skin normal color, texture and turgor with no lesions or eruptions, warm and dry. Keloid lesion in the left upper extremity Psychiatric: The mental examination revealed the patient was oriented to person , place, and time. The patient was able to demonstrate good judgment on recent , without hallucinations, abnormal affect or abnormal behaviors. Results Laboratory Results: 06/09/18 14:50 06/09/18 14:50 06/09/18 06/09/18 06/09/18 14:50 14:50 15:59 WBC 5.2 RBC 4.03 Hgb 11.0 L Hct 33.7 L MCV 84 MCH 27.2 MCHC 32.5 RDW 15.2 H Plt Count 196 Seg Neutrophils % 52.7 Lymphocytes % 30.6 Monocytes % 13.9 H Eosinophils % 2.3 Basophils % 0.5 Absolute Neutrophils 2.8 Absolute Lymphocytes 1.6 Absolute Monocytes 0.7 Absolute Eosinophils 0.1 Absolute Basophils 0.0 Sodium 140.2 Potassium 3.6 Chloride 107 Carbon Dioxide 25 Anion Gap 8 BUN 23 H Creatinine 1.36 H Est GFR ( Amer) 46 L Est GFR (Non-Af Amer) 38 L Glucose 96 Calcium 9.1 Magnesium 1.9 Total Bilirubin 0.3 AST 19 ALT 18 Alkaline Phosphatase 74 Total Protein 7.6 Albumin 3.6 Urine Color YELLOW Urine Appearance CLOUDY Urine pH 5.0 Ur Specific Mcdonald 1.016 Urine Protein 30 H Urine Glucose (UA) NEGATIVE Urine Ketones NEGATIVE Urine Blood SMALL H Urine Nitrite NEGATIVE Ur Leukocyte Esterase LARGE H Urine WBC (Auto) 179 Urine RBC (Auto) 4 Impressions: Head CT 06/09/18 14:24 IMPRESSION: 1. Focal low signal intensity is suggested in the region of the left basal ganglia since the prior study dated 06/22/2015. Considerations for this finding includes an infarct. No evidence of hemorrhage, midline shift or mass effect. EVIDENCE OF ACUTE STROKE: YES. Chest X-Ray 06/09/18 14:28 IMPRESSION: NO ACUTE RADIOGRAPHIC FINDING IN THE CHEST. Head CTA 06/09/18 15:52 IMPRESSION: NO CTA EVIDENCE OF STENOSIS OR ANEURYSM OF THE [place] OF LIVE. Neck CTA 06/09/18 15:53 IMPRESSION: The there are short segment stenoses of both internal carotid artery's extending from their origin with associated calcific atherosclerotic plaquing. Carotid duplex study may be of value for further evaluation to better quantitate the degree of stenosis. Other findings as noted above Assessment & Plan - Diagnosis (1) CVA (cerebral vascular accident) Qualifiers: CVA mechanism: thrombosis Precerebral and cerebral artery: middle cerebral artery Laterality of affected vessel: left Qualified Code(s): I63.312 - Cerebral infarction due to thrombosis of left middle cerebral artery Is this a current diagnosis for this admission?: Yes Plan: Patient comes with neurological symptoms, CT of the head positive for ischemic event in the left basal ganglia. We will keep the patient under telemetry monitoring. Cardiac markers x1 in. Will start aspirin and statins. PT, OT, swallow evaluation. Echocardiogram and carotid ultrasound. MRI of the brain. Patient is almost back to her baseline. CTA head and neck review, ultrasound is better to define the degree of carotid stenosis. (2) Urinary tract infection Qualifiers: Urinary tract infection type: acute cystitis Hematuria presence: without hematuria Qualified Code(s): N30.00 - Acute cystitis without hematuria Is this a current diagnosis for this admission?: Yes Plan: We will place the patient on ciprofloxacin IV every 12 hours. Please follow blood cultures and urine cultures. (3) Diabetes mellitus type 2 in obese Is this a current diagnosis for this admission?: Yes Plan: Accu-Cheks q. before meals and at bedtime, insulin lispro sliding scale. Hypoglycemia protocol. Continue Lantus. (4) CAD (coronary artery disease) of artery bypass graft Qualifiers: [place] vs. transplanted heart: elim ira heart Associated angina: with stable angina Qualified Code(s): I25.708 - Atherosclerosis of coronary artery bypass graft(s), unspecified, with other forms of angina pectoris Is this a current diagnosis for this admission?: Yes Plan: No current cardiac symptomatology. Continue home medications. Waiting for med rec to be completed. (5) Acute renal failure Qualifiers: Acute renal failure type: unspecified Qualified Code(s): N17.9 - Acute kidney failure, unspecified Is this a current diagnosis for this admission?: Yes Plan: BUN 23 and creatinine 1.36, likely secondary to dehydration as the patient has been feeling sick since yesterday. I am giving IV fluids and reassessment of renal panel in the morning. - Time Time Spent: 30 to 50 Minutes - Inpatient Certification Based on my medical assessment, after consideration of the patient's comorbidities, presenting symptoms, or acuity I expect that the services needed warrant INPATIENT care.: Yes I certify that my determination is in accordance with my understanding of Medicare's requirements for reasonable and necessary INPATIENT services [42 CFR 412.3e].: Yes Medical Necessity: Risk of Complication if Not Cared For in Hospital
--- NOTE | 2018-06-09 23:07 | EKG REPORT ---
SEVERITY:- ABNORMAL ECG - SINUS RHYTHM PROBABLE LEFT ATRIAL ABNORMALITY LEFT BUNDLE BRANCH BLOCK : Confirmed by: Fabian Peralta 09-Jun-2018 23:07:30
[2018-06-10 03:35] LABS: HEMOGLOBIN 10.8 g/dL (12.0-15.5); MEAN CORPUSCULAR HEMOGLOBIN 27.3 pg (27.0-33.4); MEAN CORPUSCULAR HGB CONC 32.8 g/dL (32.0-36.0); MEAN CORPUSCULAR VOLUME 83 fl (80-97); PLATELET COUNT 175 10^3/uL (150-450); RED BLOOD COUNT 3.95 10^6/uL (3.72-5.28); RED CELL DISTRIBUTION WIDTH 15.2 % (11.5-14.0); WHITE BLOOD COUNT 4.9 10^3/uL (4.0-10.5)
[2018-06-10 03:59] LABS: ALANINE AMINOTRANSFERASE 14 U/L (9-52); ALBUMIN 3.1 g/dL (3.5-5.0); ALKALINE PHOSPHATASE 79 U/L (38-126); ANION GAP 9 (5-19); ASPARTATE AMINO TRANSFERASE 18 U/L (14-36); BILIRUBIN,DIRECT 0.2 mg/dL (0.0-0.4); BILIRUBIN,TOTAL 0.2 mg/dL (0.2-1.3); BLOOD UREA NITROGEN 24 mg/dL (7-20); CALCIUM 8.8 mg/dL (8.4-10.2); CARBON DIOXIDE 22 mmol/L (22-30); CHLORIDE 110 mmol/L (98-107); GLUCOSE 172 mg/dL (75-110); POTASSIUM 3.9 mmol/L (3.6-5.0); SODIUM 140.5 mmol/L (137-145); TOTAL PROTEIN 6.9 g/dL (6.3-8.2); TRIGLYCERIDES 91 mg/dL (<150)
[2018-06-10 04:09] LABS: DIRECT LDL 116 mg/dL (<100)
[2018-06-10] MEDS: NORMAL SALINE 1000 ML 1,000 ML IV PRN (06:05)
[2018-06-10] MEDS: CIPROFLOXACIN 400 MG/D5W RTU 400 MG/200 ML RTUPB IV SCH ×2 (06:16→17:04)
[2018-06-10] MEDS: INSULIN LISPRO 100 UNIT/ML 3 ML VIAL SUBCUT PRN ×2 (08:33→17:04)
[2018-06-10] MEDS: ASPIRIN 81 MG TABLET, ENT COATED PO SCH (10:29)
[2018-06-10] MEDS: ENOXAPARIN SODIUM INJ 40 MG/0.4 ML DISP.SYRIN SUBCUT SCH (10:29)
--- NOTE | 2018-06-10 17:13 | PDOC PROGRESS REPORT ---
Subjective Progress Note for:: 06/10/18 Subjective:: This is 78 years old black female patient with multiple comorbidities including type 2 diabetes mellitus, hypertension, coronary artery disease status post quadruple coronary artery bypass graft, hypothyroidism, presents with chief complaint of difficulty walking and unable to use her food. Her CT scan of the head revealed acute ischemic stroke involving the left basilar ganglia. MRI of the brain is pending and her CTA of the neck reveals calcification and carotid Dopplers pending thinking. Reason For Visit: CEREBROVASCULAR ACCIDENT CVA Physical Exam Vital Signs: Temp Pulse Resp BP Pulse Ox 98.3 F 62 17 146/56 H 100 06/10/18 15:30 06/10/18 16:00 06/10/18 16:00 06/10/18 16:00 06/10/18 16:00 Intake & Output 06/09/18 06/10/18 06/11/18 06:59 06:59 06:59 Intake Total 200 537 Balance 200 537 Weight 89.8 kg General appearance: PRESENT: no acute distress Eye exam: PRESENT: conjunctiva pink Mouth exam: PRESENT: moist Neck exam: ABSENT: carotid bruit, JVD, lymphadenopathy, thyromegaly Cardiovascular exam: PRESENT: RRR. ABSENT: diastolic murmur, rubs, systolic murmur GI/Abdominal exam: PRESENT: normal bowel sounds, soft. ABSENT: distended, guarding, mass, organolmegaly, rebound, tenderness Neurological exam: PRESENT: alert Skin exam: PRESENT: other - Scaly lesion of the upper extremities Results Laboratory Results: 06/10/18 03:21 06/10/18 03:21 06/10/18 06/10/18 03:21 03:21 WBC 4.9 RBC 3.95 Hgb 10.8 L Hct 33.0 L MCV 83 MCH 27.3 MCHC 32.8 RDW 15.2 H Plt Count 175 Sodium 140.5 Potassium 3.9 Chloride 110 H Carbon Dioxide 22 Anion Gap 9 BUN 24 H Creatinine 1.13 Est GFR ( Amer) 57 L Est GFR (Non-Af Amer) 47 L Glucose 172 H Calcium 8.8 Total Bilirubin 0.2 AST 18 ALT 14 Alkaline Phosphatase 79 Total Protein 6.9 Albumin 3.1 L Triglycerides 91 Cholesterol 208.20 H LDL Cholesterol Direct 116 H VLDL Cholesterol 18.0 HDL Cholesterol 49 06/10/18 06/10/18 03:21 09:48 Troponin I 0.131 0.099 Impressions: Head CT 06/09/18 14:24 IMPRESSION: 1. Focal low signal intensity is suggested in the region of the left basal ganglia since the prior study dated 06/22/2015. Considerations for this finding includes an infarct. No evidence of hemorrhage, midline shift or mass effect. EVIDENCE OF ACUTE STROKE: YES. Chest X-Ray 06/09/18 14:28 IMPRESSION: NO ACUTE RADIOGRAPHIC FINDING IN THE CHEST. Head CTA 06/09/18 15:52 IMPRESSION: NO CTA EVIDENCE OF STENOSIS OR ANEURYSM OF THE [place] OF LIVE. Neck CTA 06/09/18 15:53 IMPRESSION: The there are short segment stenoses of both internal carotid artery's extending from their origin with associated calcific atherosclerotic plaquing. Carotid duplex study may be of value for further evaluation to better quantitate the degree of stenosis. Other findings as noted above Assessment & Plan - Diagnosis (1) Acute ischemic stroke Is this a current diagnosis for this admission?: Yes Plan: Involving the left basal ganglia. Continue aspirin, Plavix and Lipitor. Monitor her blood pressure (2) Complicated UTI (urinary tract infection) Is this a current diagnosis for this admission?: Yes Plan: Continue current antibiotics (3) Coronary artery disease Qualifiers: Coronary Disease-Associated Artery/Lesion type: [place] artery Is this a current diagnosis for this admission?: Yes Plan: Status post quadruple bypass. No angina at this point. (4) Obesity (BMI 30-39.9) Is this a current diagnosis for this admission?: Yes Plan: Lifestyle modification advised. (5) Diabetes mellitus type 2 in obese Is this a current diagnosis for this admission?: Yes Plan: Current regimen
[2018-06-10] MEDS: ATORVASTATIN CALCIUM 80 MG TABLET PO SCH (21:46)
[2018-06-10] MEDS ORDERED: HYDRALAZINE HCL INJ/PF 20 MG/1 ML SDV IV PRN (21:49)
[2018-06-11] MEDS: NORMAL SALINE 1000 ML 1,000 ML IV PRN (01:57)
[2018-06-11] MEDS: CIPROFLOXACIN 400 MG/D5W RTU 400 MG/200 ML RTUPB IV SCH ×2 (05:42→17:45)
[2018-06-11] MEDS: ENOXAPARIN SODIUM INJ 40 MG/0.4 ML DISP.SYRIN SUBCUT SCH (09:22)
[2018-06-11] MEDS: ASPIRIN 81 MG TABLET, ENT COATED PO SCH (09:22)
--- NOTE | 2018-06-11 11:12 | PDOC DISCHARGE SUMMARY ---
General - Admit/Disc Date/PCP Admission Date/Primary Care Provider: 06/09/18 22:36 KIARA Everardo HARRINGTON, PERIANESTHESIA NURSE-C Discharge Date: 06/11/18 - Discharge Diagnosis (1) Acute ischemic stroke Is this a current diagnosis for this admission?: Yes (2) Complicated UTI (urinary tract infection) Is this a current diagnosis for this admission?: Yes (3) Coronary artery disease Is this a current diagnosis for this admission?: Yes (4) Obesity (BMI 30-39.9) Is this a current diagnosis for this admission?: Yes (5) Diabetes mellitus type 2 in obese Is this a current diagnosis for this admission?: Yes - Additional Information Resuscitation Status: Full Code Home Medications: Aspirin [Adult Low Dose Aspirin EC] 81 mg PO DAILY 06/10/18 Atorvastatin Calcium [Lipitor 80 mg Tablet] 80 mg PO QHS 06/10/18 Hydroxyzine HCl [Atarax 25 mg Tablet] 25 mg PO HSP PRN 06/10/18 Insulin Aspart [Novolog Flexpen] 0 units SQ .PERSLIDINGSCALE 06/10/18 Insulin Glargine,Hum.rec.anlog [Lantus Solostar] 20 units SQ QHS 06/10/18 Metoprolol Succinate [Toprol Xl 50 mg Tab.sr] 50 mg PO DAILY 06/10/18 Nisoldipine [Sular] 20 mg PO DAILY 06/10/18 History of Present Illness History of Present Illness: TRUPTI GARRISON is a 78 year old female Hospital Course Hospital Course: This is 78 years old black female patient with multiple comorbidities including type 2 diabetes mellitus, hypertension, coronary artery disease status post quadruple coronary artery bypass graft, hypothyroidism, presents with chief complaint of difficulty walking and unable to use her food. Her CT scan of the head revealed acute ischemic stroke involving the left basilar ganglia. MRI of the brain is pending could not be done since she has a wire on the chest for coronary bypass graft. This morning I seen patient sitting on chair and enjoying her breakfast. She is able to walk around and actively participated with physical therapy. Physical therapist recommended outpatient rehab. Physical Exam Vital Signs: Temp Pulse Resp BP Pulse Ox 98.4 F 76 16 170/67 H 100 06/11/18 08:01 06/11/18 08:01 06/11/18 08:01 06/11/18 08:01 06/11/18 08:01 Intake & Output 06/10/18 06/11/18 06/12/18 06:59 06:59 06:59 Intake Total 200 2707 Balance 200 2707 Weight 89.8 kg 89.2 kg General appearance: PRESENT: no acute distress Head exam: PRESENT: atraumatic Eye exam: PRESENT: conjunctiva pink Neck exam: ABSENT: carotid bruit, JVD, lymphadenopathy, thyromegaly Respiratory exam: PRESENT: clear to auscultation preeti. ABSENT: rales, rhonchi, wheezes Cardiovascular exam: PRESENT: RRR. ABSENT: diastolic murmur, rubs, systolic murmur GI/Abdominal exam: PRESENT: normal bowel sounds, soft. ABSENT: distended, guarding, mass, organolmegaly, rebound, tenderness Neurological exam: PRESENT: alert, awake, oriented to time, oriented to situation Results Laboratory Results: 06/10/18 03:21 06/10/18 03:21 06/10/18 06/10/18 03:21 09:48 Troponin I 0.131 0.099 Impressions: Head CT 06/09/18 14:24 IMPRESSION: 1. Focal low signal intensity is suggested in the region of the left basal ganglia since the prior study dated 06/22/2015. Considerations for this finding includes an infarct. No evidence of hemorrhage, midline shift or mass effect. EVIDENCE OF ACUTE STROKE: YES. Chest X-Ray 06/09/18 14:28 IMPRESSION: NO ACUTE RADIOGRAPHIC FINDING IN THE CHEST. Head CTA 06/09/18 15:52 IMPRESSION: NO CTA EVIDENCE OF STENOSIS OR ANEURYSM OF THE [place] OF LIVE. Neck CTA 06/09/18 15:53 IMPRESSION: The there are short segment stenoses of both internal carotid artery's extending from their origin with associated calcific atherosclerotic plaquing. Carotid duplex study may be of value for further evaluation to better quantitate the degree of stenosis. Other findings as noted above Qualifiers - * PATIENT BEING DISCHARGED WITH ANY OF THE FOLLOWING DIAGNOSIS: No
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
--- NOTE | 2018-06-11 14:46 | RADIOLOGY REPORT (SQ) ---
EXAM DESCRIPTION: CAROTID DOPPLER COMPLETED DATE/TIME: 06/11/2018 2:37 pm REASON FOR STUDY: cva COMPARISON: None. TECHNIQUE: Grayscale ultrasound, Doppler velocity and spectra, and color Doppler images acquired of the extra-cranial carotid and vertebral arteries. Images stored on PACS. LIMITATIONS: None. FINDINGS: RIGHT CAROTID CCA Velocities: Within normal limits. ICA Velocities Peak systolic 1.63 m/s. End diastolic 0.84 m/s. Proximal ICA/CCA peak systolic ratio 2.3. Flow velocities are consistent with a 50 to 60% stenosis. LEFT CAROTID CCA Velocities: Within normal limits. ICA Velocities Peak systolic 1.1 m/s. End diastolic 0.26 m/s. Proximal ICA/CCA peak systolic ratio 2.4. Spectra normal. No significant plaque. VERTEBRAL ARTERIES: Antegrade flow. Normal waveforms. SUBCLAVIAN ARTERIES: No finding. OTHER: No other significant finding. IMPRESSION: Findings consistent with a 50 to 69% stenosis in the right internal carotid artery. No other hemodynamically significant stenoses are identified COMMENT: Quality ID #[id number]: Velocity criteria are extrapolated from the diameter data as defined by t he Society of Radiologists in Ultrasound Consensus Conference. Radiology 2003: 229; 340-346. TECHNICAL DOCUMENTATION: JOB ID: [id number] [employer]- All Rights Reserved Reading location - IP/workstation name: [email or web address]
[2018-06-11] MEDS: ATORVASTATIN CALCIUM 80 MG TABLET PO SCH (21:53)
[2018-06-12] MEDS: CIPROFLOXACIN 400 MG/D5W RTU 400 MG/200 ML RTUPB IV SCH ×2 (05:43→18:20)
[2018-06-12] MEDS ORDERED: OXYCODONE-ACETAMINOPHEN 5-325 MG TABLET PO PRN (09:05)
[2018-06-12] MEDS: INSULIN LISPRO 100 UNIT/ML 3 ML VIAL SUBCUT PRN (09:11)
[2018-06-12] MEDS: ENOXAPARIN SODIUM INJ 40 MG/0.4 ML DISP.SYRIN SUBCUT SCH (09:50)
[2018-06-12] MEDS: ASPIRIN 81 MG TABLET, ENT COATED PO SCH (09:50)
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
[2018-06-12] MEDS ORDERED: INSULIN REG, HUMAN 100 UNIT/ML 3 ML VIAL (PYX) SUBCUT PRN (10:34)
--- NOTE | 2018-06-12 10:49 | XCELERA REPORT ---
[address] [address] Transthoracic Echocardiogram Report Name: TRUPTI GARRISON Age: 78 yrs Gender: Female : 1940 Patient Status: Inpatient Patient Location: [address] [place] [address] Study Date: 06/11/2018 11:21 AM Height: 65 in Weight: 185 lb BSA: 1.9 m2 Procedure: A two-dimensional transthoracic echocardiogram with color flow Doppler was performed. The study was technically difficult with many images being suboptimal in quality. Reason For Study: cva History: CVA. Ordering Physician: JAMIN NAVAS Performed By: Florinda Sigala Interpretation Summary There is no obvious cardiac source of embolus noted on this transthoracic echocardiogram. Follow-up with a KATYA is suggested if cardiac source is still suspected. The left ventricle is normal in size. There is normal left ventricular wall thickness. LV EF is 60% Left ventricular systolic function is normal. Doppler measurements suggest impaired left ventricular relaxation, which is associated with grade I/IV or mild diastolic dysfunction The left ventricular wall motion is normal. There is no thrombus. Probably no ASD,PFO or VSD, but cannot be sure. The right ventricle is not well visualized secondary to technical limitations The right ventricle is grossly normal size. The right atrium is normal. The left atrial size is normal. Calcified Anterior Mitral valve leaflet tip. There is no evidence of mitral valve prolapse. There is no vegetation seen on the mitral valve. There is mild mitral stenosis MVA= 2.5 cm2. There is a mild amount of mitral regurgitation There is mild aortic stenosis There is a peak gradient of 27 mm of Hg , and a mean graient 0f 15 mm of Hg. There is no LVOT obstruction. No aortic regurgitation is present. There is no tricuspid stenosis. There is a trace to mild amount of tricuspid regurgitation There is mild pulmonary hypertension by echo RVSP is 38 to 43 mm of Hg , with RA mean of 5 to 10. There is no pulmonic valvular stenosis. There is no pulmonic valvular regurgitation. The aortic root is normal size. The inferior vena cava appeared normal and decreased > 50% with respiration (RAP 5-10 mmHg) There is no pericardial effusion. There is no obvious cardiac source of embolus noted on this transthoracic echocardiogram. Follow-up with a KATYA is suggested if cardiac source is still suspected MMode/2D Measurements & Calculations RVDd: 3.3 cm LVIDd: 4.4 cm FS: 25.7 % Ao root diam: 2.6 cm IVSd: 1.1 cm LVIDs: 3.2 cm EDV(Teich): 86.0 ml Ao root area: 5.3 cm2 LVPWd: 0.98 cm ESV(Teich): 42.3 ml LA dimension: 4.0 cm EF(Teich): 50.8 % LVOT diam: 2.0 cm LVOT area: 3.1 cm2 Doppler Measurements & Calculations MV E max brianna: MV P1/2t max brianna: Ao V2 max: LV V1 max P.2 cm/sec 104.1 cm/sec 259.3 cm/sec 3.1 mmHg MV A max brianna: MV P1/2t: 87.9 msec Ao max PG: LV V1 mean P.6 cm/sec MVA(P1/2t): 2.5 cm2 26.9 mmHg 1.5 mmHg MV E/A: 0.71 MV dec slope: Ao V2 mean: LV V1 max: 187.1 cm/sec 88.4 cm/sec 347.1 cm/sec2 Ao mean PG: LV V1 mean: MV dec time: 0.30 sec 15.6 mmHg 55.1 cm/sec Ao V2 VTI: 67.2 cmLV V1 VTI: 21.9 cm AMIRA(I,D): 1.0 cm2 AMIRA(V,D): 1.1 cm2 SV(LVOT): 67.9 ml PA V2 max: TR max rbianna: MV P1/2t-pr_phl: 72.1 cm/sec 287.8 cm/sec 87.9 msec PA max P.1 mmHg TR max P.1 mmHg Left Ventricle The left ventricle is normal in size. There is normal left ventricular wall thickness. LV EF is 60%. Left ventricular systolic function is normal. Doppler measurements suggest impaired left ventricular relaxation, which is associated with grade I/IV or mild diastolic dysfunction. The left ventricular wall motion is normal. There is no thrombus. Probably no ASD,PFO or VSD, but cannot be sure. Right Ventricle The right ventricle is not well visualized secondary to technical limitations. The right ventricle is grossly normal size. Atria The right atrium is normal. The left atrial size is normal. Mitral Valve There is mild to moderate mitral annular calcification. Calcified Anterior Mitral valve leaflet tip. There is no evidence of mitral valve prolapse. There is no vegetation seen on the mitral valve. There is mild mitral stenosis. MVA= 2.5 cm2. There is a mild amount of mitral regurgitation. Aortic Valve There is no aortic valvular vegetation. There is mild aortic stenosis. There is a peak gradient of 27 mm of Hg , and a mean graient 0f 15 mm of Hg. There is no LVOT obstruction. No aortic regurgitation is present. Tricuspid Valve There is no tricuspid stenosis. There is a trace to mild amount of tricuspid regurgitation. There is mild pulmonary hypertension by echo. RVSP is 38 to 43 mm of Hg , with RA mean of 5 to 10. Pulmonic Valve There is no pulmonic valvular stenosis. There is no pulmonic valvular regurgitation. Great Vessels The aortic root is normal size. The inferior vena cava appeared normal and decreased > 50% with respiration (RAP 5-10 mmHg). Effusions There is no pericardial effusion. : JAMIN NAVAS > Sandy Ross
[2018-06-12] MEDS ORDERED: INSULIN LISPRO 100 UNIT/ML 3 ML VIAL SUBCUT PRN (11:29)
[2018-06-12] MEDS: ATORVASTATIN CALCIUM 80 MG TABLET PO SCH (21:36)
[2018-06-13] MEDS: CIPROFLOXACIN 400 MG/D5W RTU 400 MG/200 ML RTUPB IV SCH (05:47)
[2018-06-13] MEDS: ASPIRIN 81 MG TABLET, ENT COATED PO SCH (09:04)
[2018-06-13] MEDS: ENOXAPARIN SODIUM INJ 40 MG/0.4 ML DISP.SYRIN SUBCUT SCH (09:04)
--- NOTE | 2018-06-13 09:35 | PDOC PROGRESS REPORT ---
Subjective Progress Note for:: 06/13/18 Subjective:: I seen patient sitting by the bedside and chatting with her daughter. She states "my neck pain has gone" Reason For Visit: CEREBROVASCULAR ACCIDENT CVA Physical Exam Vital Signs: Temp Pulse Resp BP Pulse Ox 97.5 F 67 18 184/77 H 100 06/13/18 07:25 06/13/18 07:25 06/13/18 07:25 06/13/18 07:25 06/13/18 07:25 Intake & Output 06/12/18 06/13/18 06/14/18 06:59 06:59 06:59 Intake Total 1600 1560 Output Total 300 0 Balance 1300 1560 Weight 89.3 kg 89.9 kg General appearance: PRESENT: no acute distress Head exam: PRESENT: atraumatic Mouth exam: PRESENT: moist Neck exam: ABSENT: carotid bruit, JVD, lymphadenopathy, thyromegaly Respiratory exam: PRESENT: clear to auscultation preeti. ABSENT: rales, rhonchi, wheezes Cardiovascular exam: PRESENT: RRR. ABSENT: diastolic murmur, rubs, systolic murmur GI/Abdominal exam: PRESENT: normal bowel sounds, soft. ABSENT: distended, guarding, mass, organolmegaly, rebound, tenderness Neurological exam: PRESENT: alert, awake, oriented to person, oriented to place , oriented to time, oriented to situation. ABSENT: motor sensory deficit Results Laboratory Results: 06/10/18 03:21 06/10/18 03:21 06/10/18 06/10/18 03:21 09:48 Troponin I 0.131 0.099 Impressions: Head CT 06/09/18 14:24 IMPRESSION: 1. Focal low signal intensity is suggested in the region of the left basal ganglia since the prior study dated 06/22/2015. Considerations for this finding includes an infarct. No evidence of hemorrhage, midline shift or mass effect. EVIDENCE OF ACUTE STROKE: YES. Chest X-Ray 06/09/18 14:28 IMPRESSION: NO ACUTE RADIOGRAPHIC FINDING IN THE CHEST. Head CTA 06/09/18 15:52 IMPRESSION: NO CTA EVIDENCE OF STENOSIS OR ANEURYSM OF THE [place] OF LIVE. Neck CTA 06/09/18 15:53 IMPRESSION: The there are short segment stenoses of both internal carotid artery's extending from their origin with associated calcific atherosclerotic plaquing. Carotid duplex study may be of value for further evaluation to better quantitate the degree of stenosis. Other findings as noted above Carotid Doppler Study 06/11/18 00:00 IMPRESSION: Findings consistent with a 50 to 69% stenosis in the right internal carotid artery. No other hemodynamically significant stenoses are identified Assessment & Plan - Diagnosis (1) Acute ischemic stroke Is this a current diagnosis for this admission?: Yes Plan: Involving the left basal ganglia. Continue aspirin, Plavix and Lipitor. Monitor her blood pressure (2) Complicated UTI (urinary tract infection) Is this a current diagnosis for this admission?: Yes Plan: Continue current antibiotics (3) Coronary artery disease Qualifiers: Coronary Disease-Associated Artery/Lesion type: [place] artery Is this a current diagnosis for this admission?: Yes Plan: Status post quadruple bypass. No angina at this point. (4) Obesity (BMI 30-39.9) Is this a current diagnosis for this admission?: Yes Plan: Lifestyle modification advised. (5) Diabetes mellitus type 2 in obese Is this a current diagnosis for this admission?: Yes Plan: Current regimen
[2018-06-13] MEDS ORDERED: (PENDING PHARMACY ID) (Hydroxyzine Hcl [Atarax 25 Mg Tablet] 25 MG) PO PRN (09:36)
[2018-06-13] MEDS ORDERED: HYDROXYZINE HCL 10 MG TABLET ONE (10:26)
[2018-06-13] MEDS ORDERED: METOPROLOL SUCCINATE 50 MG TAB.SR.24H PO ONE (10:26)
[2018-06-13] MEDS ORDERED: CHOLECALCIFEROL (D3) 1,000 UNIT TABLET ONE (10:26)
[2018-06-13] MEDS: HYDROXYZINE HCL 10 MG TABLET PO PRN (10:30)
[2018-06-13] MEDS: CHOLECALCIFEROL (D3) 1,000 UNIT TABLET PO SCH (10:30)
[2018-06-13] MEDS: METOPROLOL SUCCINATE 50 MG TAB.SR.24H PO SCH (10:30)
[2018-06-13] MEDS ORDERED: ALPRAZOLAM 0.5 MG TABLET PO PRN (12:47)
[2018-06-13] MEDS: ATORVASTATIN CALCIUM 80 MG TABLET PO SCH (21:40)
[2018-06-13] MEDS: INSULIN GLARGINE,HUM.REC.ANLOG 300 UNIT/3 ML INSULN.PEN SUBCUT SCH (21:40)
[2018-06-14] MEDS: ENOXAPARIN SODIUM INJ 40 MG/0.4 ML DISP.SYRIN SUBCUT SCH (09:19)
[2018-06-14] MEDS: ASPIRIN 81 MG TABLET, ENT COATED PO SCH (09:19)
[2018-06-14] MEDS: METOPROLOL SUCCINATE 50 MG TAB.SR.24H PO SCH (09:19)
[2018-06-14] MEDS: CHOLECALCIFEROL (D3) 1,000 UNIT TABLET PO SCH (09:19)
[2018-06-14] MEDS: HYDROXYZINE HCL 10 MG TABLET PO PRN (09:21)
--- NOTE | 2018-06-14 10:50 | PDOC PROGRESS REPORT ---
Subjective Progress Note for:: 06/14/18 Subjective:: No significant event overnight. Patient is awake alert oriented she is not in pain or distress. Reason For Visit: CEREBROVASCULAR ACCIDENT CVA Physical Exam Vital Signs: Temp Pulse Resp BP Pulse Ox 97.4 F 66 18 172/75 H 100 06/14/18 08:00 06/14/18 08:00 06/14/18 08:00 06/14/18 08:00 06/14/18 08:00 Intake & Output 06/13/18 06/14/18 06/15/18 06:59 06:59 06:59 Intake Total 1560 579 Output Total 0 Balance 1560 579 Weight 89.9 kg 87.1 kg General appearance: PRESENT: no acute distress Head exam: PRESENT: atraumatic Eye exam: PRESENT: conjunctiva pink Mouth exam: PRESENT: moist Neck exam: ABSENT: carotid bruit, JVD, lymphadenopathy, thyromegaly Respiratory exam: PRESENT: clear to auscultation preeti. ABSENT: rales, rhonchi, wheezes Cardiovascular exam: PRESENT: RRR. ABSENT: diastolic murmur, rubs, systolic murmur Neurological exam: PRESENT: alert, awake, oriented to time, oriented to situation Psychiatric exam: PRESENT: normal mood Results Laboratory Results: 06/10/18 03:21 06/10/18 03:21 06/10/18 06/10/18 03:21 09:48 Troponin I 0.131 0.099 Impressions: Head CT 06/09/18 14:24 IMPRESSION: 1. Focal low signal intensity is suggested in the region of the left basal ganglia since the prior study dated 06/22/2015. Considerations for this finding includes an infarct. No evidence of hemorrhage, midline shift or mass effect. EVIDENCE OF ACUTE STROKE: YES. Chest X-Ray 06/09/18 14:28 IMPRESSION: NO ACUTE RADIOGRAPHIC FINDING IN THE CHEST. Head CTA 06/09/18 15:52 IMPRESSION: NO CTA EVIDENCE OF STENOSIS OR ANEURYSM OF THE [place] OF LIVE. Neck CTA 06/09/18 15:53 IMPRESSION: The there are short segment stenoses of both internal carotid artery's extending from their origin with associated calcific atherosclerotic plaquing. Carotid duplex study may be of value for further evaluation to better quantitate the degree of stenosis. Other findings as noted above Carotid Doppler Study 06/11/18 00:00 IMPRESSION: Findings consistent with a 50 to 69% stenosis in the right internal carotid artery. No other hemodynamically significant stenoses are identified Assessment & Plan - Diagnosis (1) Acute ischemic stroke Is this a current diagnosis for this admission?: Yes Plan: Involving the left basal ganglia. Continue aspirin, Plavix and Lipitor. Monitor her blood pressure (2) Complicated UTI (urinary tract infection) Is this a current diagnosis for this admission?: Yes Plan: Continue current antibiotics (3) Coronary artery disease Qualifiers: Coronary Disease-Associated Artery/Lesion type: [place] artery Is this a current diagnosis for this admission?: Yes Plan: Status post quadruple bypass. No angina at this point. (4) Obesity (BMI 30-39.9) Is this a current diagnosis for this admission?: Yes Plan: Lifestyle modification advised. (5) Diabetes mellitus type 2 in obese Is this a current diagnosis for this admission?: Yes Plan: Current regimen
[2018-06-14] MEDS: INSULIN GLARGINE,HUM.REC.ANLOG 300 UNIT/3 ML INSULN.PEN SUBCUT SCH (22:28)
[2018-06-14] MEDS: ATORVASTATIN CALCIUM 80 MG TABLET PO SCH (22:30)
[2018-06-15] MEDS: CHOLECALCIFEROL (D3) 1,000 UNIT TABLET PO SCH (11:10)
[2018-06-15] MEDS: METOPROLOL SUCCINATE 50 MG TAB.SR.24H PO SCH (11:10)
[2018-06-15] MEDS: ASPIRIN 81 MG TABLET, ENT COATED PO SCH (11:10)
[2018-06-15 11:36] LABS: ABSOLUTE EOSINOPHILS # (AUTO) 0.1 10^3/uL (0.0-0.6); ABSOLUTE LYMPHOCYTES (AUTO) 1.5 10^3/uL (0.5-4.7); ABSOLUTE MONOCYTES (AUTO) 0.4 10^3/uL (0.1-1.4); ABSOLUTE NEUT (AUTO) 2.5 10^3/uL (1.7-8.2); BASOPHILS % (AUTO) 0.8 % (0-2); HEMATOCRIT 37.7 % (36.0-47.0); HEMOGLOBIN 12.4 g/dL (12.0-15.5); LYMPHOCYTES % (AUTO) 32.7 % (13-45); MEAN CORPUSCULAR HEMOGLOBIN 27.5 pg (27.0-33.4); MEAN CORPUSCULAR VOLUME 83 fl (80-97); MONOCYTES % (AUTO) 8.4 % (3-13); PLATELET COUNT 217 10^3/uL (150-450); RED BLOOD COUNT 4.53 10^6/uL (3.72-5.28); SEGMENTED NEUTROPHILS % (AUTO) 55.1 % (42-78); TOTAL CELLS COUNTED % (AUTO) 100 %; WHITE BLOOD COUNT 4.6 10^3/uL (4.0-10.5)
--- NOTE | 2018-06-15 12:15 | PDOC PROGRESS REPORT ---
Subjective Progress Note for:: 06/15/18 Subjective:: Patient's clinical stable. No significant event overnight. Reason For Visit: CEREBROVASCULAR ACCIDENT CVA Physical Exam Vital Signs: Temp Pulse Resp BP Pulse Ox 98.0 F 51 L 14 160/62 H 100 06/15/18 08:21 06/15/18 08:21 06/15/18 08:21 06/15/18 08:21 06/15/18 08:21 Intake & Output 06/14/18 06/15/18 06/16/18 06:59 06:59 06:59 Intake Total 579 474 Balance 579 474 Weight 87.1 kg 87.5 kg General appearance: PRESENT: no acute distress Eye exam: PRESENT: conjunctiva pink Mouth exam: PRESENT: moist Neck exam: ABSENT: carotid bruit, JVD, lymphadenopathy, thyromegaly GI/Abdominal exam: PRESENT: normal bowel sounds, soft. ABSENT: distended, guarding, mass, organolmegaly, rebound, tenderness Neurological exam: PRESENT: alert Results Laboratory Results: 06/15/18 11:17 06/10/18 03:21 06/15/18 11:17 WBC 4.6 RBC 4.53 Hgb 12.4 Hct 37.7 MCV 83 MCH 27.5 MCHC 33.0 RDW 15.0 H Plt Count 217 Seg Neutrophils % 55.1 Lymphocytes % 32.7 Monocytes % 8.4 Eosinophils % 3.0 Basophils % 0.8 Absolute Neutrophils 2.5 Absolute Lymphocytes 1.5 Absolute Monocytes 0.4 Absolute Eosinophils 0.1 Absolute Basophils 0.0 06/10/18 07:50 Blood Blood Culture - Final NO GROWTH IN 5 DAYS 06/10/18 03:53 Blood Blood Culture - Final NO GROWTH IN 5 DAYS 06/10/18 06/10/18 03:21 09:48 Troponin I 0.131 0.099 Impressions: Head CT 06/09/18 14:24 IMPRESSION: 1. Focal low signal intensity is suggested in the region of the left basal ganglia since the prior study dated 06/22/2015. Considerations for this finding includes an infarct. No evidence of hemorrhage, midline shift or mass effect. EVIDENCE OF ACUTE STROKE: YES. Chest X-Ray 06/09/18 14:28 IMPRESSION: NO ACUTE RADIOGRAPHIC FINDING IN THE CHEST. Head CTA 06/09/18 15:52 IMPRESSION: NO CTA EVIDENCE OF STENOSIS OR ANEURYSM OF THE [place] OF LIVE. Neck CTA 06/09/18 15:53 IMPRESSION: The there are short segment stenoses of both internal carotid artery's extending from their origin with associated calcific atherosclerotic plaquing. Carotid duplex study may be of value for further evaluation to better quantitate the degree of stenosis. Other findings as noted above Carotid Doppler Study 06/11/18 00:00 IMPRESSION: Findings consistent with a 50 to 69% stenosis in the right internal carotid artery. No other hemodynamically significant stenoses are identified Assessment & Plan - Diagnosis (1) Acute ischemic stroke Is this a current diagnosis for this admission?: Yes Plan: Involving the left basal ganglia. Continue aspirin, Plavix and Lipitor. Monitor her blood pressure (2) Complicated UTI (urinary tract infection) Is this a current diagnosis for this admission?: Yes Plan: Continue current antibiotics (3) Coronary artery disease Qualifiers: Coronary Disease-Associated Artery/Lesion type: [place] artery Is this a current diagnosis for this admission?: Yes Plan: Status post quadruple bypass. No angina at this point. (4) Obesity (BMI 30-39.9) Is this a current diagnosis for this admission?: Yes Plan: Lifestyle modification advised. (5) Diabetes mellitus type 2 in obese Is this a current diagnosis for this admission?: Yes
[2018-06-15] MEDS: ENOXAPARIN SODIUM INJ 40 MG/0.4 ML DISP.SYRIN SUBCUT SCH (14:19)
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
[2018-06-15 17:08] VITALS: BP 161/71
== END 2018-06-15 17:40 | disposition home health service (06) | DRG 65 ==
LOC: ER 13:44 → EH 22:36 → 3S 06-10 01:15 → 3W 06-11 18:28
PROVIDERS: ADMIT Internal Medicine; ATTEND Internal Medicine
DX: I63.312 Cerebral infarction due to thrombosis of left middle cerebral artery (principal); N30.00 Acute cystitis without hematuria; N17.9 Acute kidney failure, unspecified; R47.01 Aphasia; R53.1 Weakness; I25.10 Atherosclerotic heart disease of native coronary artery without angina pectoris; E66.9 Obesity, unspecified; Z95.1 Presence of aortocoronary bypass graft; I10 Essential (primary) hypertension; E11.9 Type 2 diabetes mellitus without complications; E03.9 Hypothyroidism, unspecified; Z90.710 Acquired absence of both cervix and uterus; Z68.34 Body mass index [BMI] 34.0-34.9, adult; Z96.642 Presence of left artificial hip joint; Z79.4 Long term (current) use of insulin; Z79.82 Long term (current) use of aspirin; Z88.0 Allergy status to penicillin; Z88.8 Allergy status to other drugs, medicaments and biological substances; E86.0 Dehydration
CPT/HCPCS: 36415; 70450; 70496; 70498; 71045; 80053; 80061; 81001; 82962; 83036; 83735; 84484; 85025; 85027; 85610; 85730; 87040; 87086; 87088; 87186; 93005; 93010; 93306; 93880; 99291; G8978-GP; G8979-GP; G8980-GP; G8987-GO; G8988-GO; G8989-GO; G8999-GN; G9158-GN; G9186-GN; J0360; J0744; J1650; J1815; J7030

== ENCOUNTER 2018-10-03 18:55 | Emergency (ER) | payer MEDICARE, OTHER ==
[2018-10-03 19:33] LABS: ABSOLUTE BASOPHILS # (AUTO) 0.1 10^3/uL (0.0-0.2); ABSOLUTE EOSINOPHILS # (AUTO) 0.1 10^3/uL (0.0-0.6); ABSOLUTE LYMPHOCYTES (AUTO) 2.1 10^3/uL (0.5-4.7); ABSOLUTE MONOCYTES (AUTO) 0.5 10^3/uL (0.1-1.4); ABSOLUTE NEUT (AUTO) 5.5 10^3/uL (1.7-8.2); BASOPHILS % (AUTO) 0.6 % (0-2); EOSINOPHILS % (AUTO) 1.2 % (0-6); HEMATOCRIT 33.5 % (36.0-47.0); LYMPHOCYTES % (AUTO) 25.7 % (13-45); MEAN CORPUSCULAR HEMOGLOBIN 27.7 pg (27.0-33.4); MEAN CORPUSCULAR HGB CONC 32.9 g/dL (32.0-36.0); MEAN CORPUSCULAR VOLUME 84 fl (80-97); MONOCYTES % (AUTO) 6.5 % (3-13); PLATELET COUNT 189 10^3/uL (150-450); RED BLOOD COUNT 3.97 10^6/uL (3.72-5.28); RED CELL DISTRIBUTION WIDTH 15.2 % (11.5-14.0); TOTAL CELLS COUNTED % (AUTO) 100 %; WHITE BLOOD COUNT 8.3 10^3/uL (4.0-10.5)
[2018-10-03 19:40] LABS: ALANINE AMINOTRANSFERASE 20 U/L (9-52); ALBUMIN 3.8 g/dL (3.5-5.0); ALKALINE PHOSPHATASE 113 U/L (38-126); ANION GAP 9 (5-19); ASPARTATE AMINO TRANSFERASE 24 U/L (14-36); BILIRUBIN,DIRECT 0.3 mg/dL (0.0-0.4); BILIRUBIN,TOTAL 0.5 mg/dL (0.2-1.3); BLOOD UREA NITROGEN 26 mg/dL (7-20); CALCIUM 9.1 mg/dL (8.4-10.2); CARBON DIOXIDE 22 mmol/L (22-30); CHLORIDE 109 mmol/L (98-107); CREATINE KINASE 182 U/L (30-135); GLUCOSE 136 mg/dL (75-110); POTASSIUM 3.9 mmol/L (3.6-5.0); SODIUM 140.2 mmol/L (137-145); TOTAL PROTEIN 7.6 g/dL (6.3-8.2)
[2018-10-03 19:52] LABS: TROPONIN I < 0.012 ng/mL
[2018-10-03 21:13] LABS: APPEARANCE,URINE CLEAR; BILIRUBIN,URINE NEGATIVE (NEGATIVE); COLOR,URINE YELLOW; GLUCOSE, URINE NEGATIVE (NEGATIVE); KETONES,URINE TRACE mg/dL (NEGATIVE); LEUKOCYTE ESTERASE,URINE TRACE (NEGATIVE); NITRITE,URINE POSITIVE (NEGATIVE); PROTEIN,URINE 100 mg/dL (NEGATIVE); URINE SPECIFIC GRAVITY 1.012; UROBILINOGEN,URINE NEGATIVE mg/dL (<2.0)
[2018-10-03 22:03] VITALS: BP 165/76
--- NOTE | 2018-10-03 22:12 | ER Document Report ---
ED General - General Chief Complaint: Dizziness Stated Complaint: DIZZINESS Time Seen by Provider: 10/03/18 20:03 Notes: Patient is a 78-year-old female with a past medical history of hypertension, hyperlipidemia, diabetes, presents with an episode of dizziness that occurred prior to arrival has now resolved. Patient states that shortly after getting home from the grocery store she began to feel dizzy like the room is spinning around her. She states that the symptoms resolved after she had one episode of vomiting and she has felt fine since that time. She states that by the time EMS arrived her house her symptoms had completely resolved. She denies at any point having any chest pain, jaw pain, shortness of breath, upper abdominal pain. Symptoms came on spontaneously and likewise resolved spontaneously. No history of similar symptoms in the past. She states that she was able to walk with ease during that time. Family states that when they called on the phone there was no slurring of speech. The patient denies any weakness or numbness at any time. She has not contacted her primary care doctor regarding today's concerns. TRAVEL OUTSIDE OF THE [place] IN LAST 30 DAYS: No - Related Data Allergies/Adverse Reactions: lisinopril [Lisinopril] Allergy (Verified 06/09/18 13:45) Penicillins Allergy (Verified 06/09/18 13:45) Past Medical History - General Information source: Patient - Social History Smoking Status: Former Smoker Frequency of alcohol use: None Drug Abuse: None Lives with: Family Family History: Reviewed & Not Pertinent Patient has suicidal ideation: No Patient has homicidal ideation: No - Past Medical History Cardiac Medical History: Reports: Hx Coronary Artery Disease - 1 bypass, Hx Hypercholesterolemia, Hx Hypertension Endocrine Medical History: Reports: Hx Diabetes Mellitus Type 1, Hx Diabetes Mellitus Type 2, Hx Hypothyroidism Renal/ Medical History: Denies: Hx Peritoneal Dialysis Psychiatric Medical History: Denies: Hx Depression Past Surgical History: Reports: Hx Cardiac Surgery - tripple bipass, Hx Hysterectomy, Hx Orthopedic Surgery - left hip replacement - Immunizations Hx Diphtheria, Pertussis, Tetanus Vaccination: Yes Review of Systems - Review of Systems Notes: Constitutional: Negative for fever. HENT: Negative for sore throat. Eyes: Negative for visual changes. Cardiovascular: Negative for chest pain. Respiratory: Negative for shortness of breath. Gastrointestinal: Negative for abdominal pain, vomiting or diarrhea. Genitourinary: Negative for dysuria. Musculoskeletal: Negative for back pain. Skin: Negative for rash. Neurological: Negative for headaches, weakness or numbness. 10 point ROS negative except as marked above and in HPI. Physical Exam - Vital signs Vitals: Temp Pulse Resp BP Pulse Ox 97.9 F 75 20 181/59 H 100 10/03/18 19:05 10/03/18 19:05 10/03/18 19:05 10/03/18 19:05 10/03/18 19:05 Interpretation: Hypertensive Notes: PHYSICAL EXAMINATION: GENERAL: Well-appearing, well-nourished and in no acute distress. HEAD: Atraumatic, normocephalic. EYES: Pupils equal round and reactive to light, extraocular movements intact, sclera anicteric, conjunctiva are normal. ENT: nares patent, oropharynx clear without exudates. Moist mucous membranes. NECK: Normal range of motion, supple without lymphadenopathy LUNGS: Breath sounds clear to auscultation bilaterally and equal. No wheezes rales or rhonchi. HEART: Regular rate and rhythm without murmurs ABDOMEN: Soft, nontender, normoactive bowel sounds. No guarding, no rebound. No masses appreciated. EXTREMITIES: Normal range of motion, no pitting or edema. No cyanosis. NEUROLOGICAL: Face symmetric. Tongue protrudes midline. Extraocular motions intact. Pupils are 2 mm and equally reactive. Normal speech, normal gait. 5 out of 5 strength in both the distal and proximal upper and lower extremities bilaterally. Sensation is grossly intact throughout. Finger to nose testing normal. Pronator drift normal. PSYCH: Normal mood, normal affect. SKIN: Warm, Dry, normal turgor, no rashes or lesions noted. Course - Re-evaluation Re-evalutation: 10/03/18 22:10 Patient presents with a brief episode of vertigo that has now completely resolved. Patient has no abnormal findings on exam. Normal cerebellar testing, steady even gait. Normal proprioception. Given that the patient has had complete resolution of her symptoms I have a very low clinical suspicion for an acute cerebellar infarction. Labs completely unremarkable. I do not believe neurologic imaging is indicated at this time based on physical examination and clinical history. At this time will discharge with return precautions and follo w-up recommendations. Verbal discharge instructions given a the bedside and opportunity for questions given. Medication warnings reviewed. Patient is in agreement with this plan and has verbalized understanding of return precautions and the need for primary care follow-up in the next 24-72 hours. - Vital Signs Vital signs: Temp Pulse Resp BP Pulse Ox 97.9 F 75 20 165/76 H 100 10/03/18 22:01 10/03/18 19:05 10/03/18 22:01 10/03/18 22:01 10/03/18 22:01 - Laboratory Result Diagrams: 10/03/18 19:11 10/03/18 19:11 Laboratory results interpreted by me: 10/03/18 10/03/18 10/03/18 19:11 19:11 20:40 Hgb 11.0 L Hct 33.5 L RDW 15.2 H Chloride 109 H BUN 26 H Est GFR (Non-Af Amer) 50 L Glucose 136 H Creatine Kinase 182 H Urine Protein 100 H Urine Ketones TRACE H Urine Blood SMALL H Urine Nitrite POSITIVE H Ur Leukocyte Esterase TRACE H - EKG Interpretation by Me Additional EKG results interpreted by me: 10/03/18 22:11 Sinus bradycardia, rate 51. LVH with repolarization of normality unchanged from previous, QTC 432. Discharge - Discharge Clinical Impression: Dizziness, Vertigo Condition: Good Disposition: HOME, SELF-CARE Additional Instructions: You were seen today for lightheadedness/dizziness. The exact cause of your symptoms is unclear but your workup here is reassuring without any concerning findings. Please follow closely with your primary care physician in the next 1- 3 days. Return if you pass out, have additional episodes of lightheadedness, develop weakness/numbness, have persistent vomiting, chest pain, shortness of breath or any other symptoms that are concerning to you Referrals: JOSE ENRIQUE MARTINEZ MD [Primary Care Provider] - Follow up as needed
== END 2018-10-03 22:30 | disposition home or self-care (01) ==
LOC: ER 18:55
DX: R42 Dizziness and giddiness (principal); R00.1 Bradycardia, unspecified; E11.9 Type 2 diabetes mellitus without complications; R11.10 Vomiting, unspecified; I11.9 Hypertensive heart disease without heart failure; I25.10 Atherosclerotic heart disease of native coronary artery without angina pectoris; Z95.1 Presence of aortocoronary bypass graft; Z88.8 Allergy status to other drugs, medicaments and biological substances; Z88.0 Allergy status to penicillin; Z87.891 Personal history of nicotine dependence
CPT/HCPCS: 36415; 80053; 81001; 82550; 82553; 84484; 85025; 99284